=== PATIENT | female | born 1950 | race Caucasian/White ===

== ENCOUNTER 2017-06-15 22:52 | Observation (INO) | payer BC ==
[2017-06-15] MEDS ORDERED: NS 1,000 ML IV ONE (23:03)
--- NOTE | 2017-06-15 23:03 | EDPHY ---
H & P Stated Complaint: Abdominal epigastric pain, chest pain, back pain HPI/ROS: HPI CHIEF COMPLAINT: Chest pain radiating to back. HISTORY OF PRESENT ILLNESS: This patient is a 66-year-old female, she is from [place] here on vacation, she presents to the emergency room by private vehicle with discomfort in her epigastric and chest region that radiates directly to her back. This started approximately 3 hr ago were at 8:00 p.m.. She complains the pain is a fullness. Epigastric and upper chest left-sided to her back. Denies pleuritic pain or shortness of breath. Denies nausea. She denies having history of cardiovascular disease. She currently has 7/10 discomfort. Past Medical History: Obesity, diabetes with diet control, depression, thyroid Past Surgical History: Laparoscopic surgery for ovarian cyst, knee surgery. Social History: Denies daily use of drugs at back products. 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 Family History: Noncontributory ROS REVIEW OF SYSTEMS: A comprehensive 10 point review of systems is otherwise negative aside from elements mentioned in the history of present illness. Exam Constitutional appears well nontoxic triage nursing summary reviewed, vital signs reviewed, awake/alert. Eyes normal conjunctivae and sclera, EOMI, PERRLA. HENT normal inspection, atraumatic, moist mucus membranes, no epistaxis, neck supple/ no meningismus, no raccoon eyes. Respiratory clear to auscultation bilaterally, normal breath sounds, no respiratory distress, no wheezing. Cardiovascular rate normal, regular rhythm, no murmur, no edema, distal pulses normal. Gastrointestinal soft, non-tender, no rebound, no guarding, normal bowel sounds, no distension, no pulsatile mass. Genitourinary no CVA tenderness. Musculoskeletal no midline vertebral tenderness, full range of motion, no calf swelling, no tenderness of extremities, no meningismus, good pulses, neurovascularly intact. Skin pink, warm, & dry, no rash, skin atraumatic. Neurologic awake, alert and oriented x 3, AAOx3, moves all 4 extremities equally, motor intact, sensory intact, CN II-XII intact, normal cerebellar, normal vision, normal speech. Psychiatric normal mood/affect. Heme/Lymph/Immune no lymphadenopathy. Differential diagnosis includes but is not limited to: ACS, atypical chest pain , pneumothorax, pneumonia, pulmonary embolism, aortic dissection, congestive heart failure, tumor, musculoskeletal pain, esophageal pain, GERD, peptic ulcer disease, pancreatitis Medical Decision Making: Plan for this patient her symptoms very concerning for cardiac chest pain. Patient began full-dose aspirin. Nitroglycerin be given. She will need full laboratory monitor, EKG to rule out acute coronary syndrome, check troponin, check D-dimer, chest x-ray, and most likely proceed to his CT angiogram chest for rule out pulmonary embolism/aortic dissection. Re-evaluation: EKG interpretation by me on record in [employer] system. Impression time of EKG 2309, this is sinus rhythm rate of 57. There is abnormal T-wave inversions in V1 V2 V3. These are symmetrically inverted concerning for ischemia. No ST elevation. 2351: Patient has a positive D-dimer. Will proceed with CT angiogram of the chest rule out pulmonary embolism. 1228: Patient CT scan chest abdomen pelvis reviewed. No evidence of aortic dissection, no evidence of pulmonary embolism, no pneumonia, no pericardial effusion. CT scan of the chest abdomen pelvis does not show any acute process causing this patient's discomfort in her epigastric and chest area. Patient does have a positive D-dimer. No PE seen on CT scan. However she does complain of right leg swelling. Will proceed with an ultrasound right lower extremity rule out DVT. 1229: Additionally I did re-evaluate her she still has a little bit of chest discomfort 2/10 but much improved after 2 nitroglycerin and 1 mg Ativan. Patient has received full-dose aspirin. Planned for this patient repeat EKG. Troponin is noted to be negative. Patient be admitted to the hospitalist service for further cardiac evaluation. REPEAT EKG: EKG interpretation by me on record in [employer] system. Impression time of EKG 0032, sinus rhythm rate of 74. Q-waves noted V1 V2 V3 with T-wave inversions. Similar to previous EKG. No ST elevation. Patient has been admitted to the hospalist service. Dr. Sharma. Doppler of the right lower extremity for abnormal right lower extremity swelling is negative for DVT. Dr. Moody Source: Patient - Personal History Current Tetanus Diphtheria and Acellular Pertussis (TDAP): Yes - Medical/Surgical History Hx Asthma: No Hx Chronic Respiratory Disease: No Hx Diabetes: Yes Hx Cardiac Disease: No Hx Renal Disease: No Hx Cirrhosis: No Hx Alcoholism: No Hx HIV/AIDS: No Hx Splenectomy or Spleen Trauma: No Other PMH: thyroid, hormonal - Social History Smoking Status: Never smoked Constitutional: Initial Vital Signs Temperature (C) 36.5 C 06/15/17 23:00 Heart Rate 71 06/15/17 23:00 Respiratory Rate 20 06/15/17 23:00 Blood Pressure 156/91 H 06/15/17 23:00 O2 Sat (%) 97 06/15/17 23:00 O2 Delivery Mode Room Air Allergies/Adverse Reactions: codeine Allergy (Verified 06/15/17 22:57) hydrocodone Allergy (Verified 06/15/17 22:57) Penicillins Allergy (Verified 06/15/17 22:57) prochlorperazine [From Compazine] Allergy (Verified 06/15/17 22:57) Home Medications: Medication Instructions Recorded Aspirin 81 mg PO DAILY #30 tab.chew 06/16/17 Atorvastatin Calcium [Lipitor 20 20 mg PO DAILY #30 tab 06/16/17 mg (*)] Biest Cream - Compounded 1 stef TP DAILY 06/16/17 Cholecalciferol Vit D3 [Vitamin D3 3,000 units PO DAILY 06/16/17 (*)] FLUoxetine [Prozac 20 MG (*)] 20 mg PO DAILY 06/16/17 Herbals/Supplements -Info Only 1 ea PO DAILY 06/16/17 Metoprolol Succinate Xr [Toprol Xl 25 mg PO DAILY #30 tab.sr 06/16/17 25 mg (*)] Progesterone, Micronized 100 mg PO HS 06/16/17 [Progesterone] Thyroid,Pork [Thyroid] 60 mg PO DAILY 06/16/17 Medical Decision Making - Data Points Laboratory Results: Laboratory Results 06/15/17 23:20 06/15/17 23:20 Medications Given: Discontinued Medications Acetaminophen (Tylenol) 650 mg PO Q4HRS PRN PRN Reason: Pain, Mild/Fever, Can Take PO Stop: 12/13/17 01:42 Last Admin: 06/16/17 11:38 Dose: 650 mg Aspirin (Aspirin) 325 mg PO EDNOW ONE Stop: 06/15/17 23:15 Last Admin: 06/15/17 23:30 Dose: 325 mg Sodium Chloride (Ns) 1,000 mls @ 0 mls/hr IV EDNOW ONE; Wide Open PRN Reason: Protocol Stop: 06/15/17 23:04 Last Admin: 06/15/17 23:29 Dose: 1,000 mls Lorazepam (Ativan Injection) 1 mg IVP EDNOW ONE Stop: 06/16/17 00:21 Last Admin: 06/16/17 00:21 Dose: 1 mg Morphine Sulfate (Morphine) 2 mg IVP EDNOW ONE Stop: 06/16/17 00:29 Last Admin: 06/16/17 01:34 Dose: Not Given Nitroglycerin (Nitrostat) 0.4 mg SL EDNOW ONE Stop: 06/15/17 23:15 Last Admin: 06/15/17 23:28 Dose: 0.4 mg Ondansetron HCl (Zofran) 4 mg IVP EDNOW ONE Stop: 06/15/17 23:24 Last Admin: 06/15/17 23:28 Dose: 4 mg Ondansetron HCl (Zofran) 4 mg IVP EDNOW ONE Stop: 06/16/17 00:29 Last Admin: 06/16/17 01:34 Dose: Not Given Departure - Departure Disposition: [facility] Inpatient Acute Clinical Impression: Chest pain Qualifiers: Chest pain type: unspecified Qualified Code(s): R07.9 - Chest pain, unspecified Condition: Fair
--- NOTE | 2017-06-15 23:11 | CPEKG ---
Heart Rate: 57 RR Interval: 1053 P-R Interval: 148 QRSD Interval: 92 QT Interval: 428 QTC Interval: 417 P [place]: 36 QRS [place]: 44 T Wave [place]: 45 EKG Severity - ABNORMAL ECG - EKG Impression: SINUS RHYTHM EKG Impression: ABNRM R PROG, CONSIDER ASMI OR LEAD PLACEMENT EKG Impression: BORDERLINE T ABNORMALITIES, ANTERIOR LEADS Electronically Signed By: Vishnu Leo 16-Jun-2017 06:38:04
[2017-06-15] MEDS ORDERED: NITROGLYCERIN 0.4 MG BTL SL ONE (23:14)
[2017-06-15] MEDS ORDERED: ASPIRIN 325 MG TAB PO ONE (23:14)
[2017-06-15] MEDS ORDERED: ONDANSETRON 4 MG/2 ML VIAL ONE (23:19)
[2017-06-15] MEDS ORDERED: ONDANSETRON 4 MG/2 ML VIAL IVP ONE (23:23)
[2017-06-15 23:29] LABS: PLATELET COUNT 255 10^3/uL (150-400)
[2017-06-15 23:37] LABS: INR 0.93 (0.83-1.16); PROTIME(PATIENT) 12.7 SEC (12.0-15.0)
[2017-06-15 23:38] LABS: CREATINE KINASE 54 IU/L (0-156)
[2017-06-15] MEDS ORDERED: IOPAMIDOL (ISOVUE 370) 100 ML BTL IV ONE (23:45)
[2017-06-16] MEDS ORDERED: LORazepam 2 MG/ML INJ ONE ×2 (00:12→00:20)
[2017-06-16] MEDS ORDERED: LORazepam 2 MG/ML INJ IVP ONE (00:20)
[2017-06-16] MEDS ORDERED: ONDANSETRON 4 MG/2 ML VIAL IVP ONE (00:28)
--- NOTE | 2017-06-16 00:35 | CPEKG ---
Heart Rate: 74 RR Interval: 811 P-R Interval: 172 QRSD Interval: 92 QT Interval: 428 QTC Interval: 475 P [place]: 79 QRS [place]: 39 T Wave [place]: 40 EKG Severity - ABNORMAL ECG - EKG Impression: SINUS RHYTHM EKG Impression: PROBABLE ANTEROSEPTAL INFARCT, AGE INDETERM Electronically Signed By: Vishnu Leo 16-Jun-2017 06:38:04
[2017-06-16] MEDS ORDERED: ONDANSETRON 4 MG/2 ML VIAL IVP PRN (01:43)
[2017-06-16] MEDS ORDERED: LORazepam 2 MG/ML INJ IVP PRN (01:43)
[2017-06-16] MEDS ORDERED: ACETAMINOPHEN 325 MG TAB PO PRN (01:43)
[2017-06-16] MEDS ORDERED: NS 1,000 ML IV SCH (01:45)
[2017-06-16] MEDS ORDERED: NITROGLYCERIN 0.4 MG BTL SL PRN (01:47)
--- NOTE | 2017-06-16 04:36 | GHP ---
[f rep st] HISTORY AND PHYSICAL DATE OF ADMISSION: 06/16/2017 SOURCE: Patient able to provide some history, however, she did receive Ativan in the emergency department and is now quite somnolent and continues to fall asleep during the interview. [facility] was reviewed and case discussed with ED provider. CHIEF COMPLAINT: Chest pain. HISTORY OF PRESENT ILLNESS: This is a very pleasant 66-year-old female with past medical history significant for diabetes type 2, diet controlled, hypothyroidism, depression, ABBY on CPAP, morbid obesity, who presents to the emergency department today with complaints of chest pain that started approximately 7 p.m. Patient reports that she was at rest when the symptoms started. She reports that the pain feels like a pressure and pain. There is no burning, no sharp pain and is located in her mid chest substernally. The patient denied any associated shortness of breath. She did have some nausea with 1 episode of vomiting. No hematemesis. She reports that she became slightly sweaty during this episode. Patient also notes a component of epigastric discomfort with radiation to her back. The patient falls asleep and is not able to elaborate further. She denies any increase of lower extremity edema and reports her right leg is chronically slightly bigger than her left. REVIEW OF SYSTEMS: Limited, except as noted above secondary to patient's somnolence after medications. ALLERGIES: Codeine, hydrocodone, penicillin, and Compazine. MEDICATIONS: At home, as per EMR, levothyroxine, fluoxetine. PAST MEDICAL HISTORY: Significant for morbid obesity, BMI of greater than 40, diabetes type 2, hypothyroidism, depression, ABBY on CPAP. PAST SURGICAL HISTORY: Significant for a laparoscopy for ovarian cyst and knee surgery. FAMILY HISTORY: Negative for coronary artery disease or diabetes. SOCIAL HISTORY: Patient lives in [place]. She is visiting friends here locally. She denies any tobacco, drugs, or alcohol. 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 CODE STATUS: Full. PHYSICAL EXAMINATION: VITAL SIGNS: Upon arrival to the emergency department, blood pressure 156/91, heart rate 71, O2 saturation 97% on room air with a temperature 36.5. Vitals currently available: Blood pressure 144/72, heart rate is 63, respiratory rate 18, O2 saturation 92% on room air with a temperature 36.6. GENERAL: No acute distress, pleasant, morbidly obese female , who is lying quietly in the bed. Her friend is at bedside asleep. HEAD: Normocephalic, atraumatic. EYES: Extraocular muscles are grossly intact. Pupils equal, round, decreased reactivity to light bilaterally, but symmetric. No scleral icterus or conjunctival injection. ENT: Mucous membranes appear moist. No nasal discharge. Dentition intact. NECK: Supple. Trachea midline. CV: Regular rate and rhythm. No murmurs, rubs, or gallops. Heart sounds slightly distant. Limited secondary to body habitus. RESPIRATORY: Lungs are clear to auscultation bilaterally. No wheezes, rales, or rhonchi. Unlabored breathing. ABDOMEN: Obese, soft. Minimal tenderness to palpation in the epigastric region. No rebound or guarding. Positive bowel sounds. CHEST: Patient with tenderness to palpation over the sternum. She reports that this is similar to her current chest pain. : No Bishop in place. No suprapubic tenderness to palpation. EXTREMITIES: Patient without any cyanosis , clubbing, or edema appreciated. 1+ pedal pulses. PSYCH: Affect is slightly flat. Patient is somnolent due to sedation. NEURO: Grossly nonfocal. Patient without any facial drooping. Moves all extremities. LABORATORY DATA: WBC 9.56, H and H 14.4/41.7, MCV is 86.7, platelet count is 255. No bands. PT is 12.7, INR 0.93, PTT is 24.1, D-dimer 0.89. Sodium is 137 , potassium 4.6, chloride 105, CO2 21, anion gap 11, BUN 16, creatinine 0.7, GFR greater than 60, glucose 182, calcium 9.8, magnesium 2.0, total bilirubin 0.4, ALT is 45, AST is 26, alkaline phosphatase is 97. CK is 54, CK-MB 0.63. Troponin is negative. lipase is 43. Total protein 7.2, albumin 4.3, lipase is 89. EKG reviewed myself shows normal sinus rhythm in the 50s, anteroseptal leads with T-wave inversions V1, V2 and V3, T-wave flattening, small Q-wave in lead III. No acute ST elevations. QTc is 417. Repeat EKG is similar with rate slightly faster in the 70s. CT abdomen and pelvis image report reviewed. No hepatosplenomegaly, ascites, acute pancreatitis, or urinary tract obstruction. No CT evidence of appendicitis, abscess, or bowel obstruction. Fat containing small right inguinal hernia without obstruction. CT of the chest negative for aortic aneurysm or dissection. Suboptimal contrast without definite evidence of PE. No pneumonia, pleural effusion, or pneumothorax. Venous study preliminary report noted to be negative for DVT's. ASSESSMENT AND PLAN: A pleasant 66-year-old female with history of diabetes, morbid obesity, who presents to emergency department with atypical chest pain and epigastric pain. 1. Chest pain. Patient with some subtle nonspecific EKG changes. No available comparison EKGs, as patient is from out of town. Initial troponins are negative. Patient did receive aspirin and nitroglycerin in the emergency department without significant improvement in her pain. She received 1 mg of Ativan in the emergency department, which did help ameliorate some of her pain. Will continue to trend cardiac enzymes. Patient's heart score is elevated with some subtle EKG changes. The patient's total heart score is 5, putting patient at increased risk for adverse events. She has been hospitalized for her complaint of chest pain. Lipase is negative for any evidence of pancreatitis. CTA is negative for dissection, pulmonary embolism. Patient currently reporting she is chest pain free and falls back asleep. Will plan to trend cardiac enzymes and anticipate patient will undergo stress testing if she rules out. 2. Back pain, improved. Patient without any current complaints of symptoms. Will continue to monitor. 3. Diabetes type 2. Patient reports that this is diet controlled. Will plan to check an A1c and a lipid panel. 4. Hypothyroidism. Check a TSH in the morning. Continue L-thyroxine dosing. 5. Morbid obesity. Body mass index greater than 40. Mobilization, lifestyle, and dietary changes will be encouraged. 6. Obstructive sleep apnea on continuous positive airway pressure. Patient without her home continuous positive airway pressure at bedside, and currently loaner continuous positive airway pressures are not available because they are in use. The patient has been placed on supplemental oxygen. Advised patient that we do not anticipate she will need to stay for additional day, but if that is the case, then recommend that she have somebody bring in her home continuous positive airway pressure. 7. Fluid, electrolyte, nutrition. The patient will receive some IV fluid for gentle hydration. Electrolytes will be monitored and replaced p.r.n. Diet will be n.p.o. pending outcome of rule out. She will likely require stress testing. 8. She is not a candidate for treadmill stress testing due to her limited activity abilities. 9. Code status. Will be full at this time. Unable to have a full discussion with the patient, as she is sedated and somnolent. 10. Prophylaxis. Sequential compression devices, holding anticoagulation pending cardiac evaluation. Anticipate short hospital stay at this point. Add Lovenox if patient should stay additional day. 11. Disposition. Patient has been admitted to observation on the PCU for close telemetry monitoring. /[id number]/MODL MTDD
[2017-06-16 05:45] LABS: PLATELET COUNT 238 10^3/uL (150-400)
[2017-06-16 05:54] LABS: CREATINE KINASE 46 IU/L (0-156)
--- NOTE | 2017-06-16 08:35 | CPEKG ---
Heart Rate: 64 RR Interval: 938 P-R Interval: 168 QRSD Interval: 82 QT Interval: 424 QTC Interval: 438 P [place]: 67 QRS [place]: 32 T Wave [place]: 34 EKG Severity - NORMAL ECG - EKG Impression: SINUS RHYTHM Electronically Signed By: Tai Mosley 16-Jun-2017 09:34:56
[2017-06-16] MEDS ORDERED: REGADENOSON 0.4 MG/5 ML SYR IVP ONE (10:18)
[2017-06-16 11:20] VITALS: BP 143/75; PULSE 62; RESP 15; TEMP 98.3; O2SAT 93
--- NOTE | 2017-06-16 13:30 | ASMTCASEMG ---
Living Arrangements What is your living Answers: Alone arrangement? Who do you live with? Type Of Residence What kind of residence do Answers: House you live in? Discharge Plan Comments Coordination Status Comments Notes: Pt is a 66 y/o female admitted for chest pain and abnormal EKG. Pt is having a stress test today. Pt is visiting from out of town. Pt will most likely d/c independent without any needs if nothing comes up on her stress test. CM available for d/c needs. Plan: Independent Date Signed: 06/16/2017 01:29 PM Electronically Signed By:CHARLES Bynum
--- NOTE | 2017-06-16 13:56 | PDCARST ---
CAR Stress Test Results Type of Stress Test: Lexiscan stress test Indication: cp Description of Procedure: After informed consent was obtained, pt was established to ECG, blood pressure, HR and oximetry monitoring. STRESS EKG AND HEMODYNAMIC DATA. Resting heart rate: 51 BPM. Resting ECG: SB. Resting blood pressure: 126/84 mmHg. O2 saturation at rest: 98%. Peak heart rate: 96 BPM. Peak blood pressure: 120/78 mmHg. Arrhythmias: none. Symptoms: The patient experienced no typical symptoms of angina during stress or recovery. Stress/Infusion ECG: No change in rhythm with no significant ST/T wave changes. Stress/infusion O2 saturation: 98% Impression: Uneventful Lexiscan infusion. Conclusion: Await nuclear images.
--- NOTE | 2017-06-16 16:47 | ASDISCHSUM ---
Discharge Information Plan Status:Home with No Needs Medically Cleared to Leave:06/15/2017 Discharge Date:06/16/2017 03:54 PM CM D/C Disposition: ADT D/C Disposition:Home, Routine, Self-Care Projected Discharge Date:06/16/2017 12:00 AM Transportation at D/C: Discharge Delay Reason: Follow-Up Date:06/16/2017 12:00 AM Discharge Slot: Final Diagnosis: Placement Information Patient Contact Information Contact Name:KATHIEROSAKATIE Relationship:Friend Address: Home Phone: City:[place] Alternate Phone: [email or web address] Code:[place] Email: Financial Information Financial Class:HMO and PPO Plans Primary Plan Desc: OUT OF [facility] Primary Plan Number:[id number] Secondary Plan Desc: Secondary Plan Number: Assessment Information [facility] Initial CM Assessment Living Arrangements What is your living Answers: Alone arrangement? Who do you live with? Type Of Residence What kind of residence do Answers: House you live in? Discharge Plan Comments Coordination Status Comments Notes: Pt is a 66 y/o female admitted for chest pain and abnormal EKG. Pt is having a stress test today. Pt is visiting from out of town. Pt will most likely d/c independent without any needs if nothing comes up on her stress test. CM available for d/c needs. Plan: Independent Date Signed: 06/16/2017 01:29 PM Electronically Signed By:CHARLES Bynum Intervention Information
--- NOTE | 2017-06-16 18:43 | GDS ---
[f rep st] DISCHARGE SUMMARY DISCHARGE DIAGNOSES: 1. Atypical chest pain. 2. Uncontrolled diabetes mellitus. 3. Obesity. 4. Evidence for previous myocardial infarction on nuclear stress test. 5. Hypothyroidism. 6. Obstructive sleep apnea. HOSPITAL COURSE AND STAY BY PROBLEM: Chest pain: The patient was admitted to the hospital with ches t pain that was associated with vomiting and diarrhea. Her pain has resolved. She has been monitore d on telemetry with no arrhythmias. Her troponins were negative. Nuclear stress test was done while in the hospital that showed a small infarct involving the distal septum near the apex but without sc intigraphic evidence for myocardial ischemia. This result was discussed with the patient, and I advi sed her to start metoprolol, an aspirin, and Lipitor. I urged her to seek followup with her primary care provider regarding improving her diabetes control. An A1c done during this hospital stay was ab ove goal at 7.7. Her LDL was 106. Recommend LDL of less than 70 given her diabetes and heart diseas e seen on stress test. PHYSICAL EXAM: VITAL SIGNS: On day of discharge, blood pressure 143/75, pulse of 62, respiratory ra te 15, O2 saturation 93% on room air. Temperature afebrile. GENERAL: No acute distress. HEART: S 1, S2. LUNGS: Clear. ABDOMEN: Soft. EXTREMITIES: No edema. PERTINENT LABS AND STUDIES DURING THIS HOSPITAL STAY: Myocardial perfusion scan done 06/16/2017, ref er to report. CT angio of the chest on 06/15/2017 was negative for aneurysm. There was no definite evidence for PE . CT of the abdomen showed no hepatosplenomegaly. No evidence for appendicitis or bowel obstruction. Lower extremity Doppler was negative for DVT. DISCHARGE MEDICATIONS: Please refer to discharge medication reconciliation in [facility] for details. Below is a preliminary list. New medications on hospital discharge: Metoprolol-XL 25 mg daily, Lipitor 20 mg daily, aspirin 81 mg daily. DISCHARGE INSTRUCTIONS: The patient is visiting from [place]. I urged her to seek follow up with her primary care provider upon returning home. She should be started on a medication for her diabete s if her A1c continues to be above 7. /[id number]/MODL
== END 2017-06-16 15:54 | disposition home or self-care (01) ==
LOC: F2W 06-16 01:44
PROVIDERS: ADMIT Family Medicine; ATTEND Family Medicine
PROC: 3E0337Z Introduction of Electrolytic and Water Balance Substance into Peripheral Vein, Percutaneous Approach (ICD-10-PCS; principal; 2017-06-16)
DX: R07.9 Chest pain, unspecified (principal); R94.31 Abnormal electrocardiogram [ECG] [EKG]; E86.9 Volume depletion, unspecified; E11.9 Type 2 diabetes mellitus without complications; E66.01 Morbid (severe) obesity due to excess calories; Z68.41 Body mass index [BMI] 40.0-44.9, adult; E03.9 Hypothyroidism, unspecified; G47.33 Obstructive sleep apnea (adult) (pediatric); F32.9 Major depressive disorder, single episode, unspecified; Z88.0 Allergy status to penicillin
CPT/HCPCS: 71010; 71275; 74177; 78452; 93005; 93017; 93971; 96361; 96374; 96375; 99285; A9500; G0378; J2060; J2405; J2785; Q9967

== ENCOUNTER 2017-09-21 18:38 | Emergency (ER) | payer BC ==
[2017-09-21] MEDS ORDERED: NS 1,000 ML IV ONE (19:25)
--- NOTE | 2017-09-21 19:30 | EDPHY ---
H & P Time Seen by Provider: 09/21/17 18:53 HPI/ROS: CHIEF COMPLAINT: Multiple complaints HISTORY OF PRESENT ILLNESS: The patient is a 67-year-old female who presents emergency department with multiple complaints. Patient states that she has been having ongoing shortness of breath since she arrived [place] in August. She has had intermittent cough that is nonproductive. No fevers or chills. She denies chest pain. Patient also complains of left lower abdominal pain. This is mild to moderate. It does not radiate. She has had no nausea or vomiting. Patient complains of edema on her right leg at her stem-cell injection site. She denies generalized leg pain or swelling. The patient also was concerned that her thyroid level is off. REVIEW OF SYSTEMS: My complete review of systems is negative except as mentioned in the HPI. Past Medical/Surgical History: Includes hypothyroidism, questionable heart attack, pneumonia, bronchitis Past surgical history: Stem-cell injection of right leg, cholecystectomy Social history: Patient does not smoke. She is visiting [place]. Smoking Status: Never smoked Physical Exam: 36.5, 157/103, 60, 19, 98% on room air GENERAL: Well-appearing, in no acute distress, alert. HEENT: Eyes normal to inspection, normal pharynx, no signs of dehydration. NECK: No thyromegaly, no lymphadenopathy, supple. RESPIRATORY: Clear to auscultation bilaterally, no rales, rhonchi or wheezing. CVS: Regular rate and rhythm, no rubs, murmurs, or gallops. ABDOMEN: Soft, left lower quadrant tenderness to palpation with no rebound or guarding, nondistended, no organomegaly. BACK: Normal to inspection, no CVA tenderness. SKIN: Normal color, no rash, warm, dry. No pallor. EXTREMITIES: No pedal edema, no calf tenderness, no Homans sign or cords, no joint swelling. Normal appearing NEURO/PSYCH: Alert and oriented x3, normal mood and affect, normal motor sensory exam. No obvious cranial nerve deficit. Constitutional: Initial Vital Signs Temperature (C) 36.5 C 09/21/17 18:44 Heart Rate 60 09/21/17 18:44 Respiratory Rate 19 09/21/17 18:44 Blood Pressure 157/103 H 09/21/17 18:44 O2 Sat (%) 98 09/21/17 18:44 O2 Delivery Mode Room Air Allergies/Adverse Reactions: codeine Allergy (Verified 06/15/17 22:57) hydrocodone Allergy (Verified 06/15/17 22:57) Penicillins Allergy (Verified 06/15/17 22:57) prochlorperazine [From Compazine] Allergy (Verified 06/15/17 22:57) Home Medications: Medication Instructions Recorded Aspirin 81 mg PO DAILY #30 tab.chew 06/16/17 Atorvastatin Calcium [Lipitor 20 20 mg PO DAILY #30 tab 06/16/17 mg (*)] Biest Cream - Compounded 1 stef TP DAILY 06/16/17 Cholecalciferol Vit D3 [Vitamin D3 3,000 units PO DAILY 06/16/17 (*)] FLUoxetine [Prozac 20 MG (*)] 20 mg PO DAILY 06/16/17 Herbals/Supplements -Info Only 1 ea PO DAILY 06/16/17 Metoprolol Succinate Xr [Toprol Xl 25 mg PO DAILY #30 tab.sr 06/16/17 25 mg (*)] Progesterone, Micronized 100 mg PO HS 06/16/17 [Progesterone] Thyroid,Pork [Thyroid] 60 mg PO DAILY 06/16/17 Medical Decision Making - Diagnostics Imaging Results: Imaging Impressions Chest X-Ray 09/21/17 19:25 Impression: 1. Bronchitis/airways disease. 2. No definite focal pneumonia. ED Course/Re-evaluation: In the emergency department I discussed possible etiologies with the patient. I answered all her questions. An IV was placed. Laboratory studies were obtained. Chest x-ray and abdominal CT were ordered. Patient was given normal saline 500 mL IV. EKG shows normal sinus rhythm, normal rate, normal axis, normal intervals. There are no ST or T-wave abnormalities. EKG is normal as interpreted by me. Sinus rhythm at 71. Normal axis. Normal intervals. There is mild ST elevation. This is unchanged from the previous EKG. I think this less likely represents acute pericarditis as opposed to the early repolarization Chest x-ray: No acute disease noted. Patient's CBC and chemistry unremarkable. BNP and troponin were negative. TSH was normal. CT of the abdomen pelvis: Please refer the dictated report by Dr. Westbrook. No acute disease noted. I discussed the results with the patient. I gave her warnings prior to leaving. She will return with worsening symptoms. Differential Diagnosis: My differential includes but is not limited to abdominal pain, small-bowel obstruction, perforation, diverticulitis, diverticular abscess, bronchitis, pneumonia, CHF, ACS, acute LA, hypothyroidism - Data Points Laboratory Results: Laboratory Results 09/21/17 20:00 09/21/17 20:00 09/21/17 09/21/17 20:00 20:00 WBC 6.30 10^3/uL 10^3/uL (3.80-9.50) RBC 4.57 10^6/uL 10^6/uL (4.18-5.33) Hgb 13.8 g/dL g/dL (12.6-16.3) Hct 40.5 % % (38.0-47.0) MCV 88.6 fL fL (81.5-99.8) MCH 30.2 pg pg (27.9-34.1) MCHC 34.1 g/dL g/dL (32.4-36.7) RDW 13.8 % % (11.5-15.2) Plt Count 203 10^3/uL 10^3/uL (150-400) MPV 9.5 fL fL (8.7-11.7) Neut % (Auto) 56.7 % % (39.3-74.2) Lymph % (Auto) 32.1 % % (15.0-45.0) [place] % (Auto) 8.4 % % (4.5-13.0) Eos % (Auto) 1.7 % % (0.6-7.6) Baso % (Auto) 0.6 % % (0.3-1.7) Nucleat RBC Rel Count 0.0 % % (0.0-0.2) Absolute Neuts (auto) 3.57 10^3/uL 10^3/uL (1.70-6.50) Absolute Lymphs (auto) 2.02 10^3/uL 10^3/uL (1.00-3.00) Absolute Monos (auto) 0.53 10^3/uL 10^3/uL (0.30-0.80) Absolute Eos (auto) 0.11 10^3/uL 10^3/uL (0.03-0.40) Absolute Basos (auto) 0.04 10^3/uL 10^3/uL (0.02-0.10) Absolute Nucleated RBC 0.00 10^3/uL 10^3/uL (0-0.01) Immature Gran % 0.5 % % (0.0-1.1) Immature Gran # 0.03 10^3/uL 10^3/uL (0.00-0.10) Sodium 138 mEq/L mEq/L (135-145) Potassium 4.3 mEq/L mEq/L (3.5-5.2) Chloride 106 mEq/L mEq/L (97-110) Carbon Dioxide 21 mEq/l L mEq/l (22-31) Anion Gap 11 mEq/L mEq/L (8-16) BUN 17 mg/dL mg/dL (7-23) Creatinine 0.7 mg/dL mg/dL (0.6-1.0) Estimated GFR > 60 Glucose 112 mg/dL H mg/dL (70-100) Calcium 9.0 mg/dL mg/dL (8.5-10.4) Total Bilirubin 0.6 mg/dL mg/dL (0.1-1.4) Conjugated Bilirubin 0.3 mg/dL mg/dL (0.0-0.5) Unconjugated Bilirubin 0.3 mg/dL mg/dL (0.0-1.1) AST 22 IU/L IU/L (14-46) ALT 44 IU/L IU/L (9-52) Alkaline Phosphatase 82 IU/L IU/L (38-126) Troponin I < 0.012 ng/mL ng/mL (0.000-0.034) NT-Pro-B Natriuret Pep 56 pg/mL pg/mL (0-125) Total Protein 6.5 g/dL g/dL (6.3-8.2) Albumin 3.7 g/dL g/dL (3.5-5.0) Lipase 75 IU/L IU/L (23-300) TSH 1.510 uIU/mL uIU/mL (0.465-4.680) Medications Given: Discontinued Medications Sodium Chloride (Ns) 1,000 mls @ 0 mls/hr IV EDNOW ONE; Wide Open PRN Reason: Protocol Stop: 09/21/17 19:26 Last Admin: 09/21/17 20:03 Dose: 1,000 mls Departure - Departure Disposition: Home, Routine, Self-Care Clinical Impression: Shortness of breath Abdominal pain Qualifiers: Abdominal location: left lower quadrant Qualified Code(s): R10.32 - Left lower quadrant pain Condition: Good Instructions: Acute Abdominal Pain (ED), Dyspnea (ED) Additional Instructions: Return with increasing shortness of breath, abdominal pain, fever, vomiting or any other concerns. Your laboratory studies were unremarkable. Your CT scan was unremarkable. Referrals: TANA WILKS MD [Other] - 1-2 days without fail
--- NOTE | 2017-09-21 19:51 | CPEKG ---
Heart Rate: 55 RR Interval: 1091 P-R Interval: 160 QRSD Interval: 88 QT Interval: 448 QTC Interval: 429 P [place]: 33 QRS [place]: 23 T Wave [place]: 35 EKG Severity - BORDERLINE ECG - EKG Impression: SINUS RHYTHM EKG Impression: BORDERLINE R WAVE PROGRESSION, ANTERIOR LEADS Electronically Signed By: Angela Ibrahim 21-Sep-2017 23:05:46
[2017-09-21 20:15] LABS: PLATELET COUNT 203 10^3/uL (150-400)
[2017-09-21] MEDS ORDERED: IOPAMIDOL (ISOVUE-300) 100 ML BTL ONE (20:31)
[2017-09-21 21:41] VITALS: BP 142/70
== END 2017-09-21 21:40 | disposition home or self-care (01) ==
DX: R06.02 Shortness of breath (principal); R10.32 Left lower quadrant pain; E86.9 Volume depletion, unspecified; Z79.82 Long term (current) use of aspirin; Z90.49 Acquired absence of other specified parts of digestive tract
CPT/HCPCS: Q9967

== ENCOUNTER 2018-06-14 07:00 | Observation (INO) | payer BC, OTHER ==
[2018-06-14] MEDS ORDERED: NS 1,000 ML IV ONE ×2 (07:21→09:47)
[2018-06-14] MEDS ORDERED: ONDANSETRON DISINTEGRATING 4 MG TAB PO ONE (07:21)
[2018-06-14] MEDS ORDERED: ONDANSETRON 4 MG/2 ML VIAL IVP ONE (07:21)
--- NOTE | 2018-06-14 07:43 | EDPHY ---
H & P Stated Complaint: n/v/d Time Seen by Provider: 06/14/18 07:21 HPI/ROS: CHIEF COMPLAINT: Vomiting HISTORY OF PRESENT ILLNESS: 67-year-old female with diabetes presents with vomiting. Onset of vomiting 3 hr ago. Unable to tolerate oral fluids or food. Feels dehydrated. Associated with 1 loose stool and generalized weakness. No known ill contacts. No abdominal pain, c/p, SOB, cough or fever. Completed a course of Zithromax for pharyngitis 6 days ago. REVIEW OF SYSTEMS: complete 10 point ROS reviewed and is negative except for the noted elements in the HPI - Personal History Current Tetanus/Diphtheria Vaccine: Unsure Current Tetanus Diphtheria and Acellular Pertussis (TDAP): Unsure - Medical/Surgical History Hx Asthma: No Hx Chronic Respiratory Disease: No Hx Diabetes: Yes Hx Cardiac Disease: Yes Hx Renal Disease: No Hx Cirrhosis: No Hx Alcoholism: No Hx HIV/AIDS: No Hx Splenectomy or Spleen Trauma: No Other PMH: thyroid, hormonal. stem cell surg r leg. choly 06/2017. ?heart attack i the past. PNEUMONIA 06/2017 - Social History Smoking Status: Never smoked - Physical Exam Exam: General Appearance: Alert, pleasant Eyes: Pupils equal and round, no conjunctival pallor ENT, Mouth: Mucous membranes moist Neck: Normal inspection Respiratory: Lungs are clear to auscultation Cardiovascular: Regular rate and rhythm Gastrointestinal: Abdomen is soft and nontender Neurological: A&O, nonfocal exam Skin: Warm and dry, no rash Extremities: Nontender, no pedal edema Psychiatric: Mood and affect normal Constitutional: Initial Vital Signs Temperature (C) 36.8 C 06/14/18 07:05 Heart Rate 91 06/14/18 07:05 Respiratory Rate 16 06/14/18 07:05 Blood Pressure 155/84 H 06/14/18 07:05 O2 Sat (%) 95 06/14/18 07:05 O2 Delivery Mode Room Air Allergies/Adverse Reactions: codeine Allergy (Verified 06/14/18 07:04) hydrocodone Allergy (Verified 06/14/18 07:04) Penicillins Allergy (Verified 06/14/18 07:04) prochlorperazine [From Compazine] Allergy (Verified 06/14/18 07:04) Home Medications: Medication Instructions Recorded Cholecalciferol Vit D3 [Vitamin D3 3,000 units PO DAILY 06/16/17 (*)] FLUoxetine [Prozac 20 MG (*)] 20 mg PO DAILY 06/16/17 Progesterone, Micronized 100 - 200 mg PO HS 06/16/17 [Progesterone] Herbals/Supplements -Info Only 1 ea PO DAILY 06/14/18 LORazepam [Ativan (*)] 1 mg PO DAILY PRN 06/14/18 Meclizine HCl [Meclizine HCl 25 mg 25 mg PO DAILY PRN 06/14/18 (RX,OTC)] Ondansetron Odt [Zofran Odt 4 mg 4 mg PO Q4 PRN #6 tab 06/14/18 (*)] metFORMIN HCL [Glucophage 500 mg 500 mg PO BIDMEAL 06/14/18 (*)] Medical Decision Making ED Course/Re-evaluation: This patient presents with a 4 hr history of nausea, vomiting and diarrhea. concern for Cdif colitis, given recent abx, will send GI pathogen panel if able to collect stool. Zofran 4mg ODT given in triage. An IV was established and Zofran 4 mg IV given. Patient remained nauseated after IV Zofran. Phenergan 6.25 mg IV given without relief. Ativan 0.5 mg IV given for anxiety. Remains severely nauseated, has not vomited and no bowel movement while in the ED. Feels too weak to go home. Phenergan 6.25 mg IV given. Abdominal exam remains soft and nontender. I do not suspect SBO or intraabd infection at this point. Difficult IV access, Istat labs unremarkable, unable to obtain CBC/Chem 7, despite multiple attempts in ED. Will admit for observation and further care. The hospitalist service was consulted for admission. Differential Diagnosis: Differential diagnosis includes though it is not limited to appendicitis, cholecystitis, diverticulitis, pyelonephritis, bowel perforation, small bowel obstruction. - Data Points Laboratory Results: 06/14/18 10:15 POC Glucose 128 mg/dL H mg/dL (70-100) Medications Given: Acetaminophen (Tylenol) 650 mg PO Q4HRS PRN PRN Reason: Pain, Mild/Fever, Can Take PO Stop: 12/11/18 12:23 Last Admin: 06/14/18 21:19 Dose: 650 mg Enoxaparin Sodium (Lovenox) 40 mg SC BID SEB Stop: 12/11/18 20:59 Last Admin: 06/14/18 21:19 Dose: 40 mg Sodium Chloride (Ns) 1,000 mls @ 75 mls/hr IV CONT SEB Stop: 12/11/18 12:29 Last Admin: 06/14/18 12:36 Dose: 1,000 mls Insulin Human Lispro (Humalog Lispro) 0 unit SC TIDMEAL SEB PRN Reason: Protocol Stop: 12/11/18 17:59 Last Admin: 06/14/18 18:02 Dose: Not Given Discontinued Medications Sodium Chloride (Ns) 1,000 mls @ 0 mls/hr IV EDNOW ONE; Wide Open PRN Reason: Protocol Stop: 06/14/18 07:22 Last Admin: 06/14/18 07:54 Dose: 1,000 mls Sodium Chloride (Ns) 1,000 mls @ 0 mls/hr IV ONCE ONE; Wide Open PRN Reason: Protocol Stop: 06/14/18 09:48 Last Admin: 06/14/18 11:03 Dose: 1,000 mls Lorazepam (Ativan Injection) 0.5 mg IVP EDNOW ONE Stop: 06/14/18 08:57 Last Admin: 06/14/18 09:01 Dose: 0.5 mg Ondansetron HCl (Zofran Odt) 4 mg PO EDNOW ONE Stop: 06/14/18 07:22 Last Admin: 06/14/18 07:23 Dose: 4 mg Ondansetron HCl (Zofran) 4 mg IVP EDNOW ONE Stop: 06/14/18 07:22 Last Admin: 06/14/18 08:02 Dose: 4 mg Potassium Chloride (Klor-Con) 10 meq PO ONCE ONE PRN Reason: Protocol Stop: 06/14/18 20:22 Last Admin: 06/14/18 21:18 Dose: 10 meq Promethazine HCl (Phenergan) 6.25 mg IVP ONCE ONE Stop: 06/14/18 09:45 Last Admin: 06/14/18 09:50 Dose: 6.25 mg Promethazine HCl (Phenergan) 6.25 mg IVP ONCE ONE Stop: 06/14/18 10:56 Last Admin: 06/14/18 11:03 Dose: 6.25 mg Point of Care Test Results: Chemistry 06/14/18 10:15 POC Glucose 128 mg/dL H mg/dL (70-100) Departure - Departure Disposition: [facility] Inpatient Acute Clinical Impression: Vomiting Qualifiers: Vomiting type: unspecified Vomiting Intractability: intractable Nausea presence : with nausea Qualified Code(s): R11.2 - Nausea with vomiting, unspecified Condition: Good
[2018-06-14] MEDS ORDERED: LORazepam 2 MG/ML INJ IVP ONE (08:56)
[2018-06-14] MEDS ORDERED: PROMETHAZINE HCL 25 MG/ML INJ IVP ONE ×2 (09:44→10:55)
[2018-06-14] MEDS ORDERED: PROTOCOL POTASSIUM 1 DOSE MISC PRN (12:24)
[2018-06-14] MEDS ORDERED: PROMETHAZINE HCL 25 MG/ML INJ IVP PRN (12:24)
[2018-06-14] MEDS ORDERED: ONDANSETRON 4 MG/2 ML VIAL IVP PRN (12:24)
[2018-06-14] MEDS ORDERED: PROTOCOL MAGNESIUM 1 DOSE IV PRN (12:24)
[2018-06-14] MEDS ORDERED: ONDANSETRON DISINTEGRATING 4 MG TAB PO PRN (12:24)
[2018-06-14] MEDS ORDERED: D50W 25 GM/50 ML SYR IVP PRN (12:24)
[2018-06-14] MEDS ORDERED: PROTOCOL K PHOSPHATE 1 DOSE IV PRN (12:24)
[2018-06-14] MEDS ORDERED: NS 1,000 ML IV SCH (12:30)
--- NOTE | 2018-06-14 12:40 | PDGENHP ---
History and Physical - Chief Complaint Nausea and Vomiting - History of Present Illness Mer Escobedo is a 67 year old female with pmh of NIDDM, HLD, and depression who presented to the ER with acute onset of nausea and vomiting. She says that she was fine unitl about 3am this morning and then started throwing up. She is here visiting from [place]. She completed a course of azithromycin for a URI about 6 days ago. She, has had some loose stools but this morning also had 3 episodes of diarrhea. She also threw up multiple times this morning. She said that she has been throwing up water and anything she eats. She does not have any abdominal pain aside from some soreness from wretching. she has no black or bloody stools. She denied any dysuria, hematuria, or urinary frequency or urgency. she denied any fevers, chills, CP, sob, or other symptoms. No sick contacts and nobody around her is ill. The last thing she ate was a day old [place] panini last night, somewhere between 9-10PM. History Information - Allergies/Home Medication List Allergies/Adverse Reactions: codeine Allergy (Verified 06/14/18 07:04) hydrocodone Allergy (Verified 06/14/18 07:04) Penicillins Allergy (Verified 06/14/18 07:04) prochlorperazine [From Compazine] Allergy (Verified 06/14/18 07:04) Home Medications: Cholecalciferol Vit D3 [Vitamin D3 (*)] 3,000 units PO DAILY 06/16/17 [Last Taken 06/13/18] FLUoxetine [Prozac 20 MG (*)] 20 mg PO DAILY 06/16/17 [Last Taken 06/13/18] Progesterone, Micronized [Progesterone] 100 - 200 mg PO HS 06/16/17 [Last Taken 06/13/18] Herbals/Supplements -Info Only 1 ea PO DAILY 06/14/18 [Last Taken Unknown] LORazepam [Ativan (*)] 1 mg PO DAILY PRN 06/14/18 [Last Taken Unknown] Meclizine HCl [Meclizine HCl 25 mg (RX,OTC)] 25 mg PO DAILY PRN 06/14/18 [Last Taken Unknown] metFORMIN HCL [Glucophage 500 mg (*)] 500 mg PO BIDMEAL 06/14/18 [Last Taken 18:00] I have personally reviewed and updated: family history, medical history, social history, surgical history - Past Medical History diabetes type 2, hyperlipidemia - Surgical History Reports: cholecystectomy - Family History Positive for: diabetes type II - Social History Smoking Status: Never smoked Alcohol Use: None Drug Use: None Review of Systems Review of Systems: ROS: 10pt was reviewed & negative except for what was stated in HPI & below Physical Exam Physical Exam: Temp Pulse Resp BP Pulse Ox 37.2 C 79 15 176/85 H 93 06/14/18 12:17 06/14/18 12:17 06/14/18 12:17 06/14/18 12:17 06/14/18 12:17 Constitutional: no apparent distress, appears nourished, not in pain Eyes: PERRL, anicteric sclera, EOMI Ears, Nose, Mouth, Throat: moist mucous membranes, hearing normal, ears appear normal, no oral mucosal ulcers Cardiovascular: regular rate and rhythym, no murmur, rub, or gallop, No edema Respiratory: no respiratory distress, no rales or rhonchi, clear to auscultation Gastrointestinal: normoactive bowel sounds, soft, non-tender abdomen, no palpable masses, other (she was non tender except around her umbilicus which was apparently quite tender but she says this is not new and she had a rupture umbilical cord as a child and has always had this tenderness. ) Genitourinary: no bladder fullness, no bladder tenderness Skin: warm, normal color, no rashes or abrasions, no fluctuance, no induration, No mottled Musculoskeletal: full muscle strength, no muscle tenderness, normal joint ROM, no joint effusions Neurologic: AAOx3, CN II-XII Intact Psychiatric: interacting appropriately, not anxious, not encephalopathic, thought process linear Lymph, Heme, Immunologic: no cervical LAD, no supraclavicular LAD Lab Data & Imaging Review POC Glucose 128 mg/dL (70-100) H 06/14/18 10:15 Assessment & Plan Assessment: Intractable Nausea and vomiting- Vitals remain stable, and examination is reassuring. We are struggling to obtain labs but history suggestive of viral gastroenteritis. No alarm symptoms. she appears comfortable currently -obtain baseline CMP/CBC -check GI panel -IV hydration -expectant management with antiemetics, fluids NIDDM- takes 1gram glucophage BID. Hold while ill and cover with SSI HLD- resume lipitor on dc Depression- on prozac. fine to continue PPX- SCDS, Lovenox Fluids- Normal saline at 75 Lytes- Pending Nutrition- NPO with sips until we get labs Cor- Full Dispo- Observation for intractable NV
[2018-06-14 13:52] LABS: PLATELET COUNT 225 10^3/uL (150-400)
[2018-06-14] MEDS ORDERED: hydrALAZINE 20 MG/ML VIAL IVP PRN (14:46)
--- NOTE | 2018-06-14 15:50 | ASMTCMCOM ---
CM Note CM Note Notes: Pt visiting from [place], admitted to hospital with n/v/diarrhea. Anticipate pt will dc home independent when medically stable, CM availble for any changes. DC Plan: Independent Date Signed: 06/14/2018 03:50 PM Electronically Signed By:Nyasia De La Fuente RN
[2018-06-14] MEDS: INSULIN LISPRO 100 UNIT/ML SC SCH (18:02)
[2018-06-14] MEDS ORDERED: POTASSIUM CL 10 MEQ TAB PO ONE (20:21)
[2018-06-14] MEDS: ENOXAPARIN 40 MG/0.4 ML SYR SC SCH (21:19)
[2018-06-14] MEDS: ACETAMINOPHEN 325 MG TAB PO PRN (21:19)
[2018-06-15 05:56] LABS: PLATELET COUNT 196 10^3/uL (150-400)
[2018-06-15] MEDS ORDERED: LORazepam 1 MG TAB PO PRN (07:59)
[2018-06-15] MEDS: FLUoxetine 20 MG CAP PO SCH (08:33)
[2018-06-15] MEDS: ENOXAPARIN 40 MG/0.4 ML SYR SC SCH ×2 (08:33→19:59)
--- NOTE | 2018-06-15 08:44 | HOSPPROG ---
Hospitalist Progress Note Assessment/Plan: Mer Escobedo is a 67 year old female with pmh of NIDDM, HLD, and depression who presented to the ER with acute onset of nausea and vomiting. First encounter, chart reviewed. *Norovirus, gastroenteritis -supportive care -having significant diarrhea *intractable n and v -due to the above -better today *NIDDM -holding Glucophage in the setting above -SSI *HLD -Lipitor *depression -Prozac *plan: if better this afternoon, will dc Subjective: Mer is feeling better today. Objective: Vital Signs Temp Pulse Resp BP Pulse Ox 36.6 C 73 16 131/81 H 92 06/15/18 08:00 06/15/18 08:00 06/15/18 08:00 06/15/18 08:00 06/15/18 08:00 Microbiology 06/14/18 16:49 Gastrointestinal Tract Panel (PCR) - Final Stool Norovirus Gi/Gii Laboratory Results 06/15/18 05:32 06/15/18 05:32 06/14/18 06/15/18 06/16/18 05:59 05:59 05:59 Intake Total 2000 Output Total 1000 Balance 1000 - Physical Exam Constitutional: appears nourished, not in pain, obese Eyes: PERRL Ears, Nose, Mouth, Throat: hearing normal Cardiovascular: regular rate and rhythym Respiratory: no respiratory distress Gastrointestinal: normoactive bowel sounds (hyperactive), soft, non-tender abdomen Skin: warm Musculoskeletal: full muscle strength Neurologic: AAOx3 Psychiatric: interacting appropriately ICD10 Worksheet Patient Problems: Problems Problem Status Onset Vomiting Acute Chest pain Acute
[2018-06-15] MEDS: INSULIN LISPRO 100 UNIT/ML SC SCH ×3 (10:28→18:32)
[2018-06-15] MEDS ORDERED: POTASSIUM CL 10 MEQ TAB PO ONE ×2 (10:52→20:05)
[2018-06-15] MEDS: ACETAMINOPHEN 325 MG TAB PO PRN (14:57)
[2018-06-16] MEDS: ACETAMINOPHEN 325 MG TAB PO PRN (05:52)
[2018-06-16 08:06] VITALS: BP 141/85
[2018-06-16] MEDS: INSULIN LISPRO 100 UNIT/ML SC SCH (08:22)
[2018-06-16] MEDS: ENOXAPARIN 40 MG/0.4 ML SYR SC SCH (08:24)
[2018-06-16] MEDS: FLUoxetine 20 MG CAP PO SCH (08:25)
--- NOTE | 2018-06-16 09:50 | HOSPPROG ---
Hospitalist Progress Note Assessment/Plan: Mer Escobedo is a 67 year old female with pmh of NIDDM, HLD, and depression who presented to the ER with acute onset of nausea and vomiting. *Norovirus, gastroenteritis -supportive care -having significant diarrhea *intractable n and v -due to the above -better today *NIDDM -holding Glucophage in the setting above -SSI *HLD -Lipitor *depression -Prozac *plan:dc home Subjective: Mer is feeling much better today. Objective: Vital Signs Temp Pulse Resp BP Pulse Ox 36.6 C 70 16 141/85 H 96 06/16/18 08:00 06/16/18 08:00 06/16/18 08:00 06/16/18 08:00 06/16/18 08:00 Laboratory Results 06/15/18 05:32 06/16/18 05:31 06/15/18 06/16/18 06/17/18 05:59 05:59 05:59 Intake Total 2000 100 Output Total 1000 Balance 1000 100 - Physical Exam Constitutional: appears nourished, not in pain, obese Eyes: PERRL Ears, Nose, Mouth, Throat: hearing normal Cardiovascular: regular rate and rhythym Respiratory: no respiratory distress Gastrointestinal: normoactive bowel sounds, soft, non-tender abdomen Skin: warm Musculoskeletal: full muscle strength Neurologic: AAOx3 Psychiatric: interacting appropriately ICD10 Worksheet Patient Problems: Problems Problem Status Onset Vomiting Acute Chest pain Acute
[2018-06-16] MEDS ORDERED: MAGNESIUM SULF 1 GM/DEXTROSE 100 ML IV ONE (09:57)
--- NOTE | 2018-06-16 12:38 | GDS ---
DISCHARGE DIAGNOSES: 1. Norovirus, viral gastroenteritis. 2. Intractable nausea and vomiting. 3. Non-insulin dependent diabetes. 4. Hyperlipidemia. 5. Depression. BRIEF HISTORY: The patient is a 67-year-old female with a past medical history of [id number] diabetes, hyperlipidemia, and depression. She presented to the ER with acute onset of nausea and vomiting. A stool PCR was sent which noted that she had norovirus. She was treated with supportive care. She is eating and drinking well today. HOSPITAL COURSE: 1. Norovirus, gastroenteritis, resolved. 2. Intractable nausea and vomiting, resolved. 3. Non-insulin dependent diabetes. Her Glucophage was held. She was treated with sliding scale insulin. She can resume this tomorrow. 4. Hyperlipidemia, on statin therapy. 5. Depression, stable. She is on Prozac. DISCHARGE CONDITION: Stable. Blood pressure is 141/85, O2 sats on room air 96% , respiratory rate is 16, pulse is 70, temperature 36.6 Celsius. MEDICATIONS AT DISCHARGE: Please see the EMR. DISCHARGE INSTRUCTIONS: 1. Good handwashing. 2. If she develops fever, chills, worsening abdominal pain, return to the ER. /[id number]/MODL MTDD
== END 2018-06-16 12:19 | disposition home or self-care (01) ==
LOC: F3E 12:06
PROVIDERS: ADMIT Internal Medicine; ATTEND Internal Medicine
DX: A08.11 Acute gastroenteropathy due to Norwalk agent (principal); E86.0 Dehydration; R11.2 Nausea with vomiting, unspecified; E11.9 Type 2 diabetes mellitus without complications; E66.9 Obesity, unspecified; Z68.41 Body mass index [BMI] 40.0-44.9, adult; E78.5 Hyperlipidemia, unspecified; F32.9 Major depressive disorder, single episode, unspecified; Z88.0 Allergy status to penicillin
CPT/HCPCS: 96361; 96372; 96374; 96375; 96376; 99285; G0378; J1650; J1815; J2060; J2405; J2550

== ENCOUNTER 2018-08-08 11:33 | Emergency (ER) | payer BC, OTHER ==
[2018-08-08] MEDS ORDERED: NS 1,000 ML IV ONE (13:30)
[2018-08-08 13:42] LABS: PLATELET COUNT 268 10^3/uL (150-400)
[2018-08-08] MEDS ORDERED: IOHEXOL 350mgI/ML (OMNIPAQUE) 150 ML BTL IV ONE (14:06)
--- NOTE | 2018-08-08 15:07 | EDPHY ---
General - History Smoking Status: Never smoked Time Seen by Provider: 08/08/18 12:28 Narrative: CLINICAL IMPRESSION: Dizziness , fatigue ASSESSMENT/PLAN: 67 year old female visiting our area from [place] presents to the emergency department with approximately 3 days of gradual onset dizziness, nausea, and fatigue. Patient has a long history of chronic dizziness associated with past episodes of labyrinthitis as well as benign positional vertigo but stated this. Of dizziness and vertigo felt different. She also arrives with a mild headache rated 3/10. She has a nonfocal neurological exam, NIH score of 0. Vital signs stable, EKG shows normal sinus rhythm, no acute ST or T-wave changes , reviewed by Dr. Mccauley. Troponin negative. CT head and CTA head and neck are read by Radiology as negative for any acute abnormality. Lab work reassuring with no evidence of anemia, leukocytosis, electrolyte imbalance, hyperglycemia, DKA renal insufficiency, or metabolic disturbance. Patient was reporting some dysuria but has no evidence of urinary tract infection. She received IV fluids, meclizine, Zofran, and took Ativan prior to arrival which is what she normally takes for dizziness. Patient admits that she felt better. On multiple reassessments she was able to ambulate with me and had a steady gait. I did discuss an offer admission for dizziness however patient has refused at this time. She prefers to go home. I gave her a small refill of Ativan. She is planning on returning to her home state of [place] in 4 days. Low threshold for return to emergency department sooner as outlined in person and discharge papers. Patient is comfortable this plan. DIFFERENTIAL DX: Dizziness including but not limited to peripheral and central causes of vertigo , orthostatic causes including dehydration, electrolyte imbalance, urinary tract infection, CVA, acute blood loss. ED PROCEDURES: See lab and/or imaging results below ED COURSE: CT scan read by Radiology at 3:00 p.m., negative for acute findings. Labs reviewed, no significant electrolyte imbalance, leukocytosis, anemia. 3:20 P.M.: Patient reassessed by myself. States that she still has a mild headache and would now like some ibuprofen. Negative CT scans reviewed with the patient. Labs essentially unremarkable. EKG with normal sinus rhythm, no acute ST or T-wave changes, reviewed with Dr. Mccauley. Patient has no complaints of chest pain or shortness of breath. She complains mostly of being tired. She is able to provide urine sample at this time. Will attempt p.o. Challenge and road test. 4:30 p.m.: Patient reassessed, ambulated in the room with me and felt steady on her feet. All lab results again discussed and normal. Option for admission reviewed and offered but patient has declined and wishes to be discharged home. She will call a cab. I will give her a small refill of her Ativan that her primary care feels in her home state. She is returning on Monday. CHIEF COMPLAINT: Fatigue, dizziness, mild headache, nausea HPI: 67-year-old female who with a past medical history of diabetes presents to the emergency department with multiple vague complaints. Patient is visiting from [place] arrived to our area 5 days ago. She states over the last 2 days she has felt very tired. She does wear CPAP machine at night but has not worn it every night. She reports a history of chronic dizziness as well as a history of prior labyrinthitis and benign positional vertigo. Over the last 2 days she has reported some spinning sensations when sitting still. She has a mild 3/10 headache today. No associated vision changes, tinnitus, difficulty walking, slurred speech or word finding difficulties. No prior history of CVA or TIA. No associated chest pain or shortness of breath. She normally takes meclizine, antiemetics and Ativan as needed for dizziness. Admits that she took an Ativan prior to arrival and is feeling better. She has had a neurologist in her home town evaluate her for dizziness and has had scans of her head in the past. She is diabetic but has not been checking her blood glucose. She reports she was nauseous this morning but did not vomit. No complaints of abdominal pain. She does report some burning with urination and thinks she may have a UTI. PAST MEDICAL HISTORY: Diabetes, obstructive sleep apnea, morbid obesity See nurse/triage notes for additional history if applicable Pertinent Past Surgical History: Cholecystectomy Family History: None reported Social History: Visiting from [place] REVIEW OF SYSTEMS: All other systems negative Constitutional: No fever, no chills, positive for appetite change. Eyes: No discharge, vision change ENT: No sore throat, congestion, ear pain. Cardiovascular: No chest pain, no palpitations. Respiratory: No cough, no shortness of breath. Gastrointestinal: No abdominal pain, no vomiting, positive for nausea, diarrhea. Genitourinary: No hematuria, positive for dysuria, flank pain, pelvic pain Musculoskeletal: No back pain, joint swelling, joint pain, myalgias. Skin: No rashes, color change. Neurological: Positive for headache, dizziness, denies weakness, positive for fatigue. PHYSICAL EXAM: General Appearance: Alert, oriented, appropriate, cooperative, obese, NAD, well hydrated, non-toxic appearing, mildly hypertensive, no hypoxia. HEENT: TMs are clear bilaterally no perforation or FB, no injection, no evidence of serous or mucopurulent otitis. Oropharynx clear is no erythema or exudates, no tonsillar hypertrophy or asymmetry. Dentition without abnormality. Eyes: PERRLA, no acute vision change, no nystagmus, swelling, discharge, pain or photosensitivity. Conjunctiva pink, no pallor or injection Neck: Supple, nontender, no lymphadenopathy, no midline pain, FROM, no meningismus. Respiratory: There are no retractions, lungs are clear to auscultation. Cardiac: Regular rate and rhythm, no murmurs or gallops. Gastrointestinal: Abdomen is soft, nontender, bowel sounds normal, no masses/ hernia, no rigidity, guarding or focal peritoneal findings. Neurological: Alert and oriented x 3, CN 2-12 grossly intact, normal gait no ataxia, DTR's intact, normal sensation and strength. NIH score 0 with no limb ataxia Skin: Warm, dry, no rashes, no nodules on palpation. Musculoskeletal: Extremities are symmetrical, full range of motion, no tenderness, deformity, swelling, or erythema. No LE swelling, calf pain or asymmetry Psychiatric: Patient is oriented X 3, there is no agitation. MEDICAL DECISION MAKING: Patient was seen independently. Secondary supervising physician at time of evaluation was Dr Mccauley. Diagnosis: Dizziness, fatigue . New, requires workup Summary: See Assessment and Plan for summary of ED visit Clinical lab tests: ordered / reviewed. Independent visualization of images, tracing, or specimens: Yes. Decision to obtain medical records or history from someone other than the patient: No Review / Summarize previous medical records: Reviewed past ED admission notes Discussed patient with another provider: Radiology Patient Progress: Improved, stable for discharge. (Caio Keenan) Medical Decision Making: I did not see this patient while she was in the emergency department. However her care was discussed with the PA while the patient was in the department. I agree with treatment plan and management (Arnol Mccauley) - Diagnostics Imaging Results: Imaging Impressions Head CT 08/08/18 13:52 Impression: 1. No acute intracranial process. 2. Age-appropriate generalized cerebral volume loss with sequela of chronic microvascular ischemic disease. 3. Unremarkable CT angiogram of the head and neck. Stenoses are calculated using [place] Symptomatic Carotid Endarterectomy Trial (NASCET) criteria. Findings and recommendations discussed with Shubham Bonner MD at 1458 hour, 2018. Head CTA 08/08/18 13:52 Impression: 1. No acute intracranial process. 2. Age-appropriate generalized cerebral volume loss with sequela of chronic microvascular ischemic disease. 3. Unremarkable CT angiogram of the head and neck. Stenoses are calculated using [place] Symptomatic Carotid Endarterectomy Trial (NASCET) criteria. Findings and recommendations discussed with Shubham Bonner MD at 1458 hour, 2018. Neck CTA 08/08/18 13:52 Impression: 1. No acute intracranial process. 2. Age-appropriate generalized cerebral volume loss with sequela of chronic microvascular ischemic disease. 3. Unremarkable CT angiogram of the head and neck. Stenoses are calculated using [place] Symptomatic Carotid Endarterectomy Trial (NASCET) criteria. Findings and recommendations discussed with Shubham Bonner MD at 1458 hour, 2018. - Objective Vital Signs: Initial Vital Signs Temperature (C) 36.5 C 08/08/18 11:46 Heart Rate 77 08/08/18 11:46 Respiratory Rate 18 08/08/18 11:46 Blood Pressure 146/87 H 08/08/18 11:46 O2 Sat (%) 92 08/08/18 11:46 O2 Delivery Mode Room Air Allergies/Adverse Reactions: codeine Allergy (Verified 08/08/18 11:45) hydrocodone Allergy (Verified 08/08/18 11:45) Penicillins Allergy (Verified 08/08/18 11:45) prochlorperazine [From Compazine] Allergy (Verified 08/08/18 11:45) Home Medications: Medication Instructions Recorded Cholecalciferol Vit D3 [Vitamin D3 3,000 units PO DAILY 06/16/17 (*)] FLUoxetine [Prozac 20 MG (*)] 20 mg PO DAILY 06/16/17 Progesterone, Micronized 100 - 200 mg PO HS 06/16/17 [Progesterone] Herbals/Supplements -Info Only 1 ea PO DAILY 06/14/18 LORazepam [Ativan (*)] 1 mg PO DAILY PRN 06/14/18 Meclizine HCl [Meclizine HCl 25 mg 25 mg PO DAILY PRN 06/14/18 (RX,OTC)] metFORMIN HCL [Glucophage 500 mg 500 mg PO BIDMEAL 06/14/18 (*)] LORazepam [Ativan] 0.5 mg PO BID PRN #8 tablet 08/08/18 Laboratory Results: Laboratory Results 08/08/18 12:10 08/08/18 12:10 08/08/18 08/08/18 08/08/18 15:58 15:30 12:10 WBC RBC Hgb Hct MCV MCH MCHC RDW Plt Count MPV Neut % (Auto) Lymph % (Auto) [place] % (Auto) Eos % (Auto) Baso % (Auto) Nucleat RBC Rel Count Absolute Neuts (auto) Absolute Lymphs (auto) Absolute Monos (auto) Absolute Eos (auto) Absolute Basos (auto) Absolute Nucleated RBC Immature Gran % Immature Gran # Sodium 138 mEq/L mEq/L (135-145) Potassium 4.8 mEq/L mEq/L (3.5-5.2) Chloride 109 mEq/L mEq/L (97-110) Carbon Dioxide 21 mEq/l L mEq/l (22-31) Anion Gap 8 mEq/L mEq/L (6-14) BUN 17 mg/dL mg/dL (7-23) Creatinine 0.8 mg/dL mg/dL (0.6-1.0) Estimated GFR > 60 Glucose 111 mg/dL H mg/dL (70-100) Calcium 9.3 mg/dL mg/dL (8.5-10.4) POC Troponin I 0.01 ng/mL ng/mL (0.00-0.08) Urine Color YELLOW Urine Appearance CLEAR Urine pH 5.0 (5.0-7.5) Ur Specific [place] > 1.060 H (1.002-1.030) Urine Protein NEGATIVE (NEGATIVE) Urine Ketones NEGATIVE (NEGATIVE) Urine Blood NEGATIVE (NEGATIVE) Urine Nitrate NEGATIVE (NEGATIVE) Urine Bilirubin NEGATIVE (NEGATIVE) Urine Urobilinogen NEGATIVE EU EU (0.2-1.0) Ur Leukocyte Esterase NEGATIVE (NEGATIVE) Urine RBC 1-3 /hpf /hpf (0-3) Urine WBC 1-3 /hpf /hpf (0-3) Ur Epithelial Cells NONE SEEN /lpf /lpf (NONE-1+) Urine Mucus TRACE /lpf /lpf (NONE-1+) Urine Glucose NEGATIVE (NEGATIVE) 08/08/18 12:10 WBC 6.81 10^3/uL 10^3/uL (3.80-9.50) RBC 4.51 10^6/uL 10^6/uL (4.18-5.33) Hgb 13.2 g/dL g/dL (12.6-16.3) Hct 39.2 % % (38.0-47.0) MCV 86.9 fL fL (81.5-99.8) MCH 29.3 pg pg (27.9-34.1) MCHC 33.7 g/dL g/dL (32.4-36.7) RDW 13.4 % % (11.5-15.2) Plt Count 268 10^3/uL 10^3/uL (150-400) MPV 9.8 fL fL (8.7-11.7) Neut % (Auto) 63.4 % % (39.3-74.2) Lymph % (Auto) 26.4 % % (15.0-45.0) [place] % (Auto) 7.6 % % (4.5-13.0) Eos % (Auto) 1.6 % % (0.6-7.6) Baso % (Auto) 0.7 % % (0.3-1.7) Nucleat RBC Rel Count 0.0 % % (0.0-0.2) Absolute Neuts (auto) 4.31 10^3/uL 10^3/uL (1.70-6.50) Absolute Lymphs (auto) 1.80 10^3/uL 10^3/uL (1.00-3.00) Absolute Monos (auto) 0.52 10^3/uL 10^3/uL (0.30-0.80) Absolute Eos (auto) 0.11 10^3/uL 10^3/uL (0.03-0.40) Absolute Basos (auto) 0.05 10^3/uL 10^3/uL (0.02-0.10) Absolute Nucleated RBC 0.00 10^3/uL 10^3/uL (0-0.01) Immature Gran % 0.3 % % (0.0-1.1) Immature Gran # 0.02 10^3/uL 10^3/uL (0.00-0.10) Sodium Potassium Chloride Carbon Dioxide Anion Gap BUN Creatinine Estimated GFR Glucose Calcium POC Troponin I Urine Color Urine Appearance Urine pH Ur Specific [place] Urine Protein Urine Ketones Urine Blood Urine Nitrate Urine Bilirubin Urine Urobilinogen Ur Leukocyte Esterase Urine RBC Urine WBC Ur Epithelial Cells Urine Mucus Urine Glucose Medications Given: Discontinued Medications Sodium Chloride (Ns) 1,000 mls @ 0 mls/hr IV EDNOW ONE; Wide Open PRN Reason: Protocol Stop: 08/08/18 13:31 Last Admin: 08/08/18 13:47 Dose: 1,000 mls Ibuprofen (Motrin) 600 mg PO EDNOW ONE Stop: 08/08/18 15:19 Last Admin: 08/08/18 15:23 Dose: 600 mg Meclizine HCl (Meclizine Hcl) 25 mg PO EDNOW ONE Stop: 08/08/18 15:39 Last Admin: 08/08/18 15:40 Dose: 25 mg Ondansetron HCl (Zofran) 4 mg IVP EDNOW ONE Stop: 08/08/18 15:38 Last Admin: 08/08/18 15:40 Dose: 4 mg Point of Care Test Results: Chemistry 08/08/18 15:58 POC Troponin I 0.01 ng/mL ng/mL (0.00-0.08) Departure - Departure Disposition: Home, Routine, Self-Care Clinical Impression: Dizziness Fatigue Qualifiers: Fatigue type: other Qualified Code(s): R53.83 - Other fatigue Condition: Fair Instructions: Acute Nausea and Vomiting (ED), Dizziness (ED) Additional Instructions: DISCHARGE INSTRUCTIONS FROM YOUR DOCTOR Thank you for visiting our emergency department today. You were treated by a physician virtual customer assistant today and your case was reviewed with our ED Attending physician. Please keep in mind that discharge from the emergency department does not mean that there is nothing wrong - it simply means that we have not identified an emergency condition that requires further evaluation or treatment in the hospital. You should always plan to follow up with primary care for re- evaluation of your condition in the next 2-3 days. If you have been referred to a specialist, please call as soon as possible (today or tomorrow) to schedule your follow up appointment at the appropriate time. YOUR DIAGNOSTIC WORKUP IN THE EMERGENCY DEPARTMENT INCLUDED EKG, CARDIAC ENZYMES, CT HEAD, CTA HEAD AND NECK, LAB EVALUATION AND URINE STUDIES. WORKUP IS ESSENTIALLY UNREMARKABLE. WE SEE NO ABNORMAL FINDINGS ON CT SCAN. CARDIAC ENZYMES ARE NEGATIVE, EKG HAS NO ABNORMALITY. NO ELECTROLYTE IMBALANCE, ANEMIA OR SIGNS OF URINARY TRACT INFECTION. YOU RECEIVED MECLIZINE, ZOFRAN AND A NEW PRESCRIPTION FOR ATIVAN. ADMISSION WAS DISCUSSED AND OFFERED BUT YOU HAVE DECLINED. PLEASE MONITOR SYMPTOMS CLOSELY AT HOME. YOU CAN FOLLOW UP WITH YOUR VESTIBULAR GAS LEAK INSPECTOR IF YOU CHOOSE. PLEASE RETURN TO THE EMERGENCY DEPARTMENT IMMEDIATELY FOR WORSENING DIZZINESS, SEVERE HEADACHE, ALTERED MENTAL STATUS, SEIZURE ACTIVITY, VOMITING, INABILITY TO WALK, SLURRED SPEECH, DIFFICULTY FINDING WORDS, NUMBNESS TO HER ARMS OR LEGS, OR ANY OTHER CONCERNS. People present with illnesses and injuries in different ways, and it is always possible that we have missed something. You may always return for re-evaluation if symptoms worsen or if they are not improving or if you develop new/different symptoms. Again, thank you for choosing our emergency department. We hope that you feel better. Referrals: TANA CEE MD [Other] - As per Instructions Prescriptions: LORazepam [Ativan] 0.5 mg PO BID PRN #8 tablet PRN Reason: Dizziness
[2018-08-08] MEDS ORDERED: IBUPROFEN 600 MG TAB PO ONE (15:18)
[2018-08-08] MEDS ORDERED: ONDANSETRON 4 MG/2 ML VIAL ONE (15:35)
[2018-08-08] MEDS ORDERED: MECLIZINE HCL 25 MG TAB ONE (15:35)
[2018-08-08] MEDS ORDERED: ONDANSETRON 4 MG/2 ML VIAL IVP ONE (15:37)
[2018-08-08] MEDS ORDERED: MECLIZINE HCL 25 MG TAB PO ONE (15:38)
--- NOTE | 2018-08-08 16:10 | CPEKG ---
Test Reason : OPEN Blood Pressure : / mmHG Vent. Rate : 072 BPM Atrial Rate : 071 BPM P-R Int : 160 ms QRS Dur : 081 ms QT Int : 381 ms P-R-T Axes : 065 018 036 degrees QTc Int : 417 ms Sinus rhythm Low voltage, precordial leads Confirmed by Arnol Mccauley ([id number]) on 08/08/2018 4:09:59 PM Referred By: PHYSICIAN ED Confirmed By:Arnol Mccauley
[2018-08-08 16:51] VITALS: BP 133/75
== END 2018-08-08 17:01 | disposition home or self-care (01) ==
DX: R53.83 Other fatigue (principal); R42 Dizziness and giddiness; R51 Headache; R11.0 Nausea; E86.9 Volume depletion, unspecified
CPT/HCPCS: 84484-ER; 96374; J2405; Q9967

== ENCOUNTER 2018-08-09 13:45 | Inpatient (IN) | payer OTHER, BC ==
[2018-08-09] MEDS ORDERED: NS 1,000 ML IV ONE (14:15)
[2018-08-09] MEDS ORDERED: LORazepam 2 MG/ML INJ IVP ONE (14:15)
--- NOTE | 2018-08-09 14:31 | EDPHY ---
General Time Seen by Provider: 08/09/18 13:55 Narrative: CLINICAL IMPRESSION: Vertigo, probable labyrinthitis ASSESSMENT/PLAN: 67-year-old female seen by this provider yesterday for dizziness, presents to the emergency department again today by ambulance after she reports worsening dizziness and vertigo during an Roselyn maneuver at a local vestibular rehab clinic. Patient had extensive workup yesterday for dizziness including lab evaluation, EKG, cardiac enzymes, urine studies, CT head, and CTA head and neck. Patient was much improved yesterday after IV Ativan, Zofran, and oral meclizine, was able to ambulate around the emergency department without difficulty. Admission was discussed and offered yesterday but patient requested to be discharged and wanted to follow up with vestibular rehab. Today , patient is reporting persistent dizziness and spinning, light sensitivity, inability to turn her head, and inability to walk because of the dizziness. She reports no chest pain, shortness of breath, or severe headache. Patient agrees at this time that she needs admission and has required admission in the past for labyrinthitis and benign positional vertigo. She is visiting from [place] and had plan to return home Monday. IV established, Ativan ordered. Patient had received Zofran, meclizine and promethazine prior to arrival. I did not pursue additional repeat imaging or cardiac workup at this time. Case discussed with Dr. Robins as well as Dr. Disla for admission. Patient is comfortable with this plan. DIFFERENTIAL DX: Dizziness including but not limited to peripheral and central causes of vertigo , orthostatic causes including dehydration, electrolyte imbalance, intracranial abnormality, CVA, TIA, ACS and blood loss. ED PROCEDURES: See lab and/or imaging results below ED COURSE: CHIEF COMPLAINT: Worsening dizziness and vertigo HPI: 67-year-old female seen by this provider yesterday for dizziness and vertigo. Patient is visiting from [place] reports a history of chronic dizziness as well as numerous episodes of labyrinthitis, benign positional vertigo, and had been symptomatic for 2 days with gradual onset dizziness. She had a normal CT head and CTA head and neck yesterday as well as reassuring EKG, cardiac enzymes , and lab evaluation as well as normal urine studies. Patient reports she visited a vestibular rehab clinic today, had 1 Roselyn maneuver and was feeling better and then had a 2nd Roselyn maneuver and began feeling much worse. She now states she has persistent dizziness and spinning, light sensitivity, and cannot move or walk because it makes her dizziness worse. No reports of headache, nausea or vomiting. No chest pain or shortness of breath. Patient is denying hearing loss and tinnitus. She reports this feels like her prior episodes of labyrinthitis. PAST MEDICAL HISTORY: Chronic dizziness, hypothyroid, non insulin-dependent diabetes See nurse/triage notes for additional history if applicable Pertinent Past Surgical History: Stem cell knee surgery Family History: Noncontributory Social History: Visiting from [place] REVIEW OF SYSTEMS: All other systems negative Constitutional: No fever, no chills, appetite change. Eyes: No discharge, vision change ENT: No sore throat, congestion, ear pain, denies hearing loss and tinnitus Cardiovascular: No chest pain, no palpitations. Respiratory: No cough, no shortness of breath. Gastrointestinal: No abdominal pain, no vomiting, diarrhea. Genitourinary: No hematuria, dysuria, flank pain, pelvic pain Musculoskeletal: No back pain, joint swelling, joint pain, myalgias. Skin: No rashes, color change. Neurological: No headache, positive for vertigo and dizziness, weakness. PHYSICAL EXAM: General Appearance: Alert, oriented, appears very uncomfortable, covering her eyes with a towel, refusing to move her head, unable to walk due to dizziness, hypertensive, no hypoxia. HEENT: Oropharynx clear is no erythema or exudates, no tonsillar hypertrophy or asymmetry. Dentition without abnormality.] Eyes: PERRLA, no acute vision change, nystagmus, swelling. Conjunctiva pink, no pallor or injection Neck: Supple, nontender, no lymphadenopathy, no midline pain, FROM, no meningismus. Respiratory: There are no retractions, lungs are clear to auscultation. Cardiac: Regular rate and rhythm, no murmurs or gallops. Gastrointestinal: Abdomen is soft, nontender, bowel sounds normal, no masses/ hernia, no rigidity, guarding or focal peritoneal findings. Neurological: [ Alert and oriented x 3, CN 2-12 grossly intact, no limb ataxia or weakness Skin: Warm, dry, no rashes, no nodules on palpation. MEDICAL DECISION MAKING: Patient was seen independently. Secondary supervising physician at time of evaluation was Dr Robins. Diagnosis: Dizziness and vertigo. New, requires workup Summary: See Assessment and Plan for summary of ED visit Clinical lab tests: ordered / reviewed. Independent visualization of images, tracing, or specimens: Review yesterday's imaging results. Decision to obtain medical records or history from someone other than the patient: No Review / Summarize previous medical records: Reviewed yesterday's ED records Discussed patient with another provider: Dr. Robins, hospitalist, Dr. Disla Patient Progress: Stable for admission. - History Smoking Status: Never smoked - Objective Vital Signs: Initial Vital Signs Temperature (C) 36.6 C 08/09/18 13:54 Heart Rate 60 08/09/18 13:54 Respiratory Rate 18 08/09/18 13:54 Blood Pressure 162/85 H 08/09/18 13:54 O2 Sat (%) 96 08/09/18 13:54 O2 Delivery Mode Room Air Allergies/Adverse Reactions: codeine Allergy (Verified 08/09/18 14:36) Hallucinations hydrocodone Allergy (Verified 08/09/18 14:36) Hallucincations nickel Allergy (Verified 08/09/18 14:36) Penicillins Allergy (Verified 08/09/18 14:36) "Welt on arms" prochlorperazine [From Compazine] Allergy (Verified 08/09/18 14:36) Lock jaw Home Medications: Medication Instructions Recorded Cholecalciferol Vit D3 [Vitamin D3 3,000 units PO DAILY 06/16/17 (*)] FLUoxetine [Prozac 20 MG (*)] 20 mg PO DAILY 06/16/17 Progesterone, Micronized 100 - 200 mg PO HS 06/16/17 [Progesterone] Herbals/Supplements -Info Only 1 ea PO DAILY 06/14/18 Meclizine HCl [Meclizine HCl 25 mg 25 mg PO DAILY PRN 06/14/18 (RX,OTC)] metFORMIN HCL [Glucophage 500 mg 500 mg PO BIDMEAL 06/14/18 (*)] LORazepam [Ativan] 0.5 mg PO BID PRN #8 tablet 08/08/18 Ibuprofen [Motrin (*)] 200 mg PO DAILY PRN 08/09/18 Ondansetron HCl [Zofran] 4 mg PO TID PRN 08/09/18 Scopolamine [Transderm-Scop] 1 each TD DAILY PRN 08/09/18 Medications Given: Discontinued Medications Sodium Chloride (Ns) 1,000 mls @ 0 mls/hr IV EDNOW ONE; Wide Open PRN Reason: Protocol Stop: 08/09/18 14:16 Last Admin: 08/09/18 14:35 Dose: 1,000 mls Lorazepam (Ativan Injection) 0.5 mg IVP EDNOW ONE Stop: 08/09/18 14:16 Last Admin: 08/09/18 14:35 Dose: 0.5 mg Departure - Departure Disposition: [facility] Clinical Impression: Dizziness Labyrinthitis, acute Qualifiers: Laterality: unspecified laterality Qualified Code(s): H83.09 - Labyrinthitis, unspecified ear Condition: Fair
[2018-08-09] MEDS ORDERED: ONDANSETRON 4 MG/2 ML VIAL IVP PRN (14:40)
[2018-08-09] MEDS ORDERED: LORazepam 0.5 MG TAB PO PRN (14:43)
[2018-08-09] MEDS ORDERED: SCOPOLAMINE HYDROBROMIDE 1 MG/3 DAYS PATCH TD PRN (14:43)
--- NOTE | 2018-08-09 15:42 | PDGENHP ---
History and Physical - Chief Complaint vertigo - History of Present Illness 67 yo female with h/o DM and previous problem with labyrinthitis 10 yrs ago presents to ED with vertigo. Her symptoms started 2 days ago when she lola from bed. She made some food, but while seated in the living room, severe vertigo struck and she could not get off the floor. She crawled to the bathroom , where she took some ativan and meclizine, which was helpful. Today, she went to a physical therapist for Roselyn's Maneuver, but during the maneuver, her symptoms became suddenly worse. She felt nauseous, but did not vomit. She denies facial or limb weakness or difficulty with speech. Her symptoms persist in the EDs. She is unable to open her eyes due to severity of vertigo. She denies blurred vision, but is unable to let me perform a full neuro exam with ocular motion. She was in the ED yesterday and had a negative head CT and negative CTA head and neck. Given the severity of her symptoms, she is admitted for further management. History Information - Allergies/Home Medication List Allergies/Adverse Reactions: codeine Allergy (Verified 08/09/18 14:36) Hallucinations hydrocodone Allergy (Verified 08/09/18 14:36) Hallucincations nickel Allergy (Verified 08/09/18 14:36) Penicillins Allergy (Verified 08/09/18 14:36) "Welt on arms" prochlorperazine [From Compazine] Allergy (Verified 08/09/18 14:36) Lock jaw Home Medications: Cholecalciferol Vit D3 [Vitamin D3 (*)] 3,000 units PO DAILY 06/16/17 [Last Taken 08/09/18] FLUoxetine [Prozac 20 MG (*)] 20 mg PO DAILY 06/16/17 [Last Taken 08/09/18] Progesterone, Micronized [Progesterone] 100 - 200 mg PO HS 06/16/17 [Last Taken 08/07/18] Herbals/Supplements -Info Only 1 ea PO DAILY 06/14/18 [Last Taken Unknown] Meclizine HCl [Meclizine HCl 25 mg (RX,OTC)] 25 mg PO DAILY PRN 06/14/18 [Last Taken 08/09/18] metFORMIN HCL [Glucophage 500 mg (*)] 500 mg PO BIDMEAL 06/14/18 [Last Taken 09:00] Ibuprofen [Motrin (*)] 200 mg PO DAILY PRN 08/09/18 [Last Taken Unknown] Ondansetron HCl [Zofran] 4 mg PO TID PRN 08/09/18 [Last Taken 08/09/18 12:00] Scopolamine [Transderm-Scop] 1 each TD DAILY PRN 08/09/18 [Last Taken Unknown] I have personally reviewed and updated: family history, medical history, social history, surgical history - Past Medical History diabetes type 2, hyperlipidemia - Surgical History Reports: cholecystectomy - Family History Positive for: diabetes type II - Social History Smoking Status: Never smoked Additional social history: Lives independently Review of Systems Review of Systems: ROS: 10pt was reviewed & negative except for what was stated in HPI & below Physical Exam Physical Exam: Temp Pulse Resp BP Pulse Ox 36.6 C 60 18 162/85 H 96 08/09/18 13:54 08/09/18 13:54 08/09/18 13:54 08/09/18 13:54 08/09/18 13:54 Constitutional: no apparent distress Eyes: other (pt won't open her eyes for ocular exam) Ears, Nose, Mouth, Throat: moist mucous membranes Cardiovascular: regular rate and rhythym Respiratory: no respiratory distress, clear to auscultation Gastrointestinal: normoactive bowel sounds, soft, non-tender abdomen Skin: warm Musculoskeletal: full muscle strength Neurologic: AAOx3 Psychiatric: interacting appropriately Assessment & Plan Assessment: Vertigo - suspect peripheral origin, had negative CT/CTA head and neck yesterday. She has responded to Ativan and Meclizine. -admit to obs for supportive care, prn meclizine, ativan -PT/OT in am to attempt ambulation -seems MRI would be low yield with negative imaging yesterday, but would consider if symptoms not improving in next 24 hrs DM - hold MTF with recent contrast -SSI Dispo - obs Full code
[2018-08-09] MEDS ORDERED: D50W 25 GM/50 ML SYR IVP PRN (15:45)
[2018-08-09 16:28] LABS: PLATELET COUNT 232 10^3/uL (150-400)
[2018-08-09] MEDS: LORazepam 0.5 MG TAB PO PRN (20:24)
[2018-08-09] MEDS: MECLIZINE HCL 25 MG TAB PO PRN (20:24)
[2018-08-09] MEDS: INSULIN LISPRO 100 UNIT/ML SC SCH (21:55)
[2018-08-10] MEDS: LORazepam 0.5 MG TAB PO PRN (04:07)
[2018-08-10] MEDS: INSULIN LISPRO 100 UNIT/ML SC SCH ×3 (08:05→19:11)
[2018-08-10] MEDS: MECLIZINE HCL 25 MG TAB PO PRN ×2 (08:14→20:17)
[2018-08-10] MEDS: FLUoxetine 20 MG CAP PO SCH (08:14)
[2018-08-10] MEDS ORDERED: ONDANSETRON DISINTEGRATING 4 MG TAB PO PRN (12:04)
[2018-08-10] MEDS: DIAZEPAM 5 MG TAB PO PRN ×2 (12:27→18:07)
[2018-08-10] MEDS: SCOPOLAMINE HYDROBROMIDE 1 MG/3 DAYS PATCH TD PRN (12:27)
--- NOTE | 2018-08-10 13:34 | HOSPPROG ---
Hospitalist Progress Note Assessment/Plan: 67y female with c/o dizziness. First encounter, chart reviewed. D/W RN. #Vertigo - suspect peripheral origin - CT/CTA head and neck negative - She has responded to Ativan and Meclizine - supportive care, prn meclizine, ativan, valium, scopalomine patch - PT/OT - MRI symptoms not improving, pt requested further evaluation #DM - restart MTF -renal fx normal -SSI, pt refusing #Dispo - change to inpt - unable to ambulate - cont supportive care Full code Subjective: Still feeling dizzy. Unable to get out of bed. No pain. Objective: Vital Signs Temp Pulse Resp BP Pulse Ox 36.3 C 69 16 129/68 H 95 08/10/18 08:00 08/10/18 08:00 08/10/18 08:00 08/10/18 08:00 08/10/18 08:00 Laboratory Results 08/09/18 16:16 08/09/18 16:16 08/09/18 08/10/18 08/11/18 05:59 05:59 05:59 Intake Total 1000 Output Total 700 Balance 300 - Physical Exam Constitutional: appears nourished, not in pain, obese Eyes: PERRL, anicteric sclera, EOMI Ears, Nose, Mouth, Throat: moist mucous membranes, hearing normal, ears appear normal Cardiovascular: regular rate and rhythym, No JVD, No edema Respiratory: no respiratory distress, no rales or rhonchi, reduced air movement Gastrointestinal: normoactive bowel sounds, No tenderness, No ascites Skin: warm, normal color, No mottled Musculoskeletal: normal joint ROM, no joint effusions, generalized weakness Neurologic: AAOx3 Psychiatric: interacting appropriately, not anxious, not encephalopathic ICD10 Worksheet Patient Problems: Problems Problem Status Onset Chest pain Acute Vomiting Acute Labyrinthitis, acute Acute Dizziness Acute
--- NOTE | 2018-08-10 15:00 | PDMN ---
Medical Necessity Medical necessity: [facility] [place] M152- Dizziness A-1 - pt present with vertigo X 2 days - status changed to INPT 08/10/18- for : inability to ambulate after observation time period- - pt still with symptoms req further monitoring and tx. unable to get out of bed, dizzy, PT/OT, MRI, PMHx: labyrinthitis , DM2, hyperlipidemia, - > 2 [place] of ongoing med nec care needed.
--- NOTE | 2018-08-10 16:37 | ASMTCMCOM ---
CM Note CM Note Notes: 08/10/2018 Case Management Note Pt admitted for severe vertigo and labrythitis. Pt resides independently in [place]. Pt was independent in ADL's prior to admission. PT recommending SNF rehab today d/t increased dizziness with movements. Case Management will monitor progress through PT notes. Case Management d/c poc: to be determined. Case Management to follow. Date Signed: 08/10/2018 04:37 PM Electronically Signed By:Darling Zapata RN
[2018-08-10] MEDS: ONDANSETRON DISINTEGRATING 4 MG TAB PO PRN (18:06)
[2018-08-10] MEDS: IBUPROFEN 200 MG TAB PO PRN (19:32)
[2018-08-10] MEDS: metFORMIN HCL 500 MG TAB PO SCH (21:27)
[2018-08-11] MEDS: LORazepam 0.5 MG TAB PO PRN (02:20)
[2018-08-11] MEDS: ONDANSETRON DISINTEGRATING 4 MG TAB PO PRN (02:27)
[2018-08-11] MEDS: INSULIN LISPRO 100 UNIT/ML SC SCH ×3 (08:55→19:36)
[2018-08-11] MEDS: metFORMIN HCL 500 MG TAB PO SCH ×2 (08:57→19:24)
[2018-08-11] MEDS: FLUoxetine 20 MG CAP PO SCH (08:57)
[2018-08-11] MEDS: CHOLECALCIFEROL VIT D3 1,000 UNITS TAB PO SCH (08:57)
[2018-08-11] MEDS ORDERED: Herbals/Supplements -Info Only PO SCH (09:00)
[2018-08-11] MEDS: MECLIZINE HCL 25 MG TAB PO PRN ×2 (10:39→22:53)
[2018-08-11] MEDS: GABAPENTIN 300 MG CAP PO SCH ×2 (13:29→22:53)
--- NOTE | 2018-08-11 15:52 | HOSPPROG ---
Hospitalist Progress Note Assessment/Plan: 67y female with c/o dizziness. Able to ambulate a bit today, still not safe for discharge. #Vertigo - suspect peripheral origin, viral labyrinthitis most likely vs BPPV, did not tolerate Epleys as outpt. CT/CTA head and neck negative. MRI also neg for brainstem stroke, showed moderate microvascular ischemic changes. - cont prn Ativan, Meclizine, scopolamine patch - cont PT/OT #DM - MTF held on admission 07/21 recent contrast, restarted a bit early as pt was refusing SSI, will continue at this point #Dispo - cont inpt, PT/OT Full code Subjective: Pt feels better today, was able to ambulate a little, but still felt dizzy. No N/V. She has improved since admission, but doesn't feel safe on her feet. No fevers. No headaches. Taking po well. Objective: Vital Signs Temp Pulse Resp BP Pulse Ox 36.6 C 92 16 134/72 H 92 08/11/18 12:00 08/11/18 12:00 08/11/18 12:00 08/11/18 12:00 08/11/18 12:00 08/10/18 08/11/18 08/12/18 05:59 05:59 05:59 Output Total 200 Balance -200 - Physical Exam Constitutional: no apparent distress Eyes: PERRL Ears, Nose, Mouth, Throat: moist mucous membranes Cardiovascular: regular rate and rhythym Respiratory: no respiratory distress, clear to auscultation Gastrointestinal: normoactive bowel sounds, soft, non-tender abdomen Skin: warm Musculoskeletal: full muscle strength Neurologic: AAOx3 Psychiatric: interacting appropriately ICD10 Worksheet Patient Problems: Problems Problem Status Onset Dizziness Acute Labyrinthitis, acute Acute Chest pain Acute Vomiting Acute
[2018-08-12] MEDS: INSULIN LISPRO 100 UNIT/ML SC SCH ×3 (08:00→18:27)
[2018-08-12] MEDS: metFORMIN HCL 500 MG TAB PO SCH ×2 (08:39→20:25)
[2018-08-12] MEDS: FLUoxetine 20 MG CAP PO SCH (08:40)
[2018-08-12] MEDS: CHOLECALCIFEROL VIT D3 1,000 UNITS TAB PO SCH (08:42)
[2018-08-12] MEDS: GABAPENTIN 300 MG CAP PO SCH ×2 (08:42→21:43)
[2018-08-12] MEDS: MECLIZINE HCL 25 MG TAB PO PRN ×2 (08:46→21:43)
[2018-08-12] MEDS: ACETAMINOPHEN 325 MG TAB PO PRN ×3 (08:59→21:42)
[2018-08-12] MEDS: IBUPROFEN 200 MG TAB PO PRN (08:59)
[2018-08-12] MEDS: LORazepam 0.5 MG TAB PO PRN ×2 (10:24→18:24)
--- NOTE | 2018-08-12 12:29 | HOSPPROG ---
Hospitalist Progress Note Assessment/Plan: 67y female with vertigo. Able to ambulate a bit more today, still not safe for discharge. #Vertigo - suspect peripheral origin, viral labyrinthitis most likely vs BPPV, did not tolerate Epleys as outpt. CT/CTA head and neck negative. MRI also neg for brainstem stroke, showed moderate microvascular ischemic changes. - cont prn Ativan, Meclizine, scopolamine patch - cont PT/OT #DM - MTF held on admission 07/21 recent contrast, restarted a bit early as pt was refusing SSI, will continue at this point #Dispo - cont inpt, PT/OT. Pt still feels unsafe for discharge. We discussed probably d/c in am with close outpt f/u. Full code Subjective: Pt continues to complains of vertigo. She is able to ambulate a bit more, but gets dizzy and feels unsafe. No N/V. More interactive today. Objective: Vital Signs Temp Pulse Resp BP Pulse Ox 36.3 C 64 16 124/78 H 91 L 08/12/18 08:00 08/12/18 08:00 08/12/18 08:00 08/12/18 08:00 08/12/18 08:00 08/11/18 08/12/18 08/13/18 05:59 05:59 05:59 Intake Total 1200 Output Total 200 Balance -200 1200 - Physical Exam Constitutional: no apparent distress Eyes: PERRL, other (no nystagmus) Ears, Nose, Mouth, Throat: moist mucous membranes Cardiovascular: regular rate and rhythym Respiratory: no respiratory distress, clear to auscultation Gastrointestinal: normoactive bowel sounds, soft, non-tender abdomen Skin: warm Musculoskeletal: full muscle strength Neurologic: AAOx3 Psychiatric: interacting appropriately ICD10 Worksheet Patient Problems: Problems Problem Status Onset Dizziness Acute Labyrinthitis, acute Acute Chest pain Acute Vomiting Acute
[2018-08-12] MEDS ORDERED: BISACODYL 10 MG SUPP PR PRN (16:22)
[2018-08-12] MEDS ORDERED: MAGNESIUM HYDROXIDE 30 ML UDCUP PO PRN (16:22)
[2018-08-12] MEDS ORDERED: LACTULOSE 20 GM/30 ML UDCUP PO PRN (16:22)
[2018-08-12] MEDS: POLYETHYLENE GLYCOL 3350 17 GM PKT PO PRN (17:43)
[2018-08-12] MEDS: SENNOSIDES/DOCUSATE SODIUM TAB PO SCH (17:43)
[2018-08-13] MEDS: CHOLECALCIFEROL VIT D3 1,000 UNITS TAB PO SCH (08:46)
[2018-08-13] MEDS: FLUoxetine 20 MG CAP PO SCH (08:47)
[2018-08-13] MEDS: GABAPENTIN 300 MG CAP PO SCH ×2 (08:47→21:13)
[2018-08-13] MEDS: metFORMIN HCL 500 MG TAB PO SCH ×2 (08:48→19:09)
[2018-08-13] MEDS: MECLIZINE HCL 25 MG TAB PO PRN (08:48)
[2018-08-13] MEDS: SENNOSIDES/DOCUSATE SODIUM TAB PO SCH ×3 (08:49→22:01)
[2018-08-13] MEDS ORDERED: D50W 25 GM/50 ML SYR IVP PRN (10:36)
--- NOTE | 2018-08-13 10:41 | HOSPPROG ---
Hospitalist Progress Note Assessment/Plan: 67y female with vertigo. Able to ambulate, but still quite symptomatic, not safe for discharge. #Vertigo - suspect peripheral origin, viral labyrinthitis vs vestibular neuritis , did not tolerate Epleys as outpt and PT testing not c/w BPPV, discussed with PT yesterday. CT/CTA head and neck negative. MRI also neg for brainstem stroke , showed moderate microvascular ischemic changes. - cont prn Ativan, Meclizine, scopolamine patch - added gabapentin as pt noted benefit from this last time she had vertigo ( 10 yrs ago) - discussed with Dr. Vera, neurologist. Little data that steroids are beneficial, but given prolonged course, will try prednisone - will review MRI with radiology to ensure adequate visualization of inner ear - cont PT/OT #DM - MTF held on admission 2/ recent contrast, restarted a bit early as pt was refusing SSI - cont MTF - cont SSI, may have increased insulin needs with addition of prednisone #Dispo - cont inpt, PT/OT. Pt still feels unsafe for discharge. Full code Subjective: Pt still c/o vertigo with movement to either direction. Able to ambulate with therapy, but still quite symptomatic. Got a little nauseous with ocular motion on exam today. No vomiting. No fevers. No headaches, vision changes or weakness. Objective: Vital Signs Temp Pulse Resp BP Pulse Ox 36.1 C 65 17 135/80 H 92 08/13/18 08:00 08/13/18 08:00 08/13/18 08:00 08/13/18 08:00 08/13/18 08:00 08/12/18 08/13/18 08/14/18 05:59 05:59 05:59 Intake Total 1200 Balance 1200 - Physical Exam Constitutional: no apparent distress Eyes: PERRL, EOMI, other (no nystagmus, +nausea with ocular motion) Cardiovascular: regular rate and rhythym, no murmur, rub, or gallop Respiratory: no respiratory distress, clear to auscultation Gastrointestinal: normoactive bowel sounds, soft, non-tender abdomen Skin: warm Musculoskeletal: full muscle strength Neurologic: AAOx3 Psychiatric: interacting appropriately ICD10 Worksheet Patient Problems: Problems Problem Status Onset Dizziness Acute Labyrinthitis, acute Acute Chest pain Acute Vomiting Acute
[2018-08-13] MEDS: INSULIN LISPRO 100 UNIT/ML SC SCH ×2 (12:42→18:33)
[2018-08-13] MEDS: predniSONE 20 MG TAB PO SCH (12:50)
[2018-08-13] MEDS: ONDANSETRON DISINTEGRATING 4 MG TAB PO PRN ×2 (13:26→19:38)
[2018-08-13] MEDS: LORazepam 0.5 MG TAB PO PRN (14:54)
[2018-08-13] MEDS ORDERED: diphenhydrAMINE 25 MG CAP PO PRN (19:30)
[2018-08-13] MEDS: POLYETHYLENE GLYCOL 3350 17 GM PKT PO PRN (19:38)
--- NOTE | 2018-08-14 05:48 | GCON ---
[f rep st] CONSULTATION REFERRING PHYSICIAN: Sailaja Disla MD HISTORY: The patient is a 67-year-old woman who I am asked to see in neurologic consultation regardi ng episodes of vertigo and now intractable vertigo, which is somewhat position dependent. She tells me that 10 years ago she had a similar episode where she was hospitalized for a week and is not sure exactly what was done, but she probably had received some steroid she believe, and they told her it w as probably labyrinthitis. She believes she might have had another episode, but then over the years has had only occasional problems with intermittent position dependent dizziness and sometimes uses Zo lorna or some meclizine and lorazepam. With this particular occasion, she came to the hospital last w [facility] and had started to have some dizziness or vertigo, which was somewhat position dependent and whil e she was having Roselyn maneuver performed, things got even worse, so she was advised to go to the [facility] where she was evaluated and an MRI the next day, which showed nonspecific white matter changes. Unfortunately, she has really struggled with rather profound vertigo and says that if she leans all way to the left or the right, she will get violently ill. When she sits up, it is more common that she experiences that. Today, she was sitting on the toilet trying to have a bowel movement and becam e somewhat vagal and vomited after she had just received some prednisone. She denies focal numbness or weakness. No chest pain, palpitations, or shortness of breath. She has had a concussion in the p ast, but not really severe trauma. PAST MEDICAL HISTORY: The patient has a history of diabetes and hyperlipidemia. MEDICATIONS: At home, she was taking Prozac, progesterone, herbals, meclizine, metformin, ibuprofen, Zofran as needed, scopolamine daily. SOCIAL HISTORY: No smoking. Lives independently. FAMILY HISTORY: Type 2 diabetes. CURRENT TREATMENT: She is getting gabapentin 300 mg b.i.d., which she believes in the past might hav e been helpful. Ativan is as needed. Meclizine 25 twice daily. ALLERGIES: Codeine, hydrocodone, nickel, penicillin, prochlorperazine. PHYSICAL EXAM: VITAL SIGNS: Blood pressure is 145/77, pulse of 66, respiration 18, temperature 36.7 . GENERAL: She is overweight, in no acute distress. NECK: Supple. No bruits or masses. NEUROLOG IC: She is awake, alert, attentive. Clear, fluent speech with normal cognition. Pupils are 3 mm an d reactive. The extraocular movements are intact at rest. I do not see any nystagmus elicited. To avoid making her vomit or very sick, I did not force her to turn hard to the left or right, but she s aid that would induce vomiting very likely. As she did turn her head harder to the left or the right , she started to complain of feeling vertigo and then could stabilize, but I did not see any definite nystagmus. She does not have any change in facial strength or sensation. Motor: Normal muscle bul k and tone. 5/5 strength. No ataxia on [id number]. IMPRESSION: Total unit time of 50 minutes. This patient has intractable, somewhat position dependen t symptoms of a peripheral vestibulopathy of some kind. Perhaps neuritis and components of benign po sitional vertigo may be present, but it does not fit very precisely for that at this point. In any c ase, she had something similar 10 years ago that required a week of hospitalizations and eventual res olution. During this time frame, I am going to hold off on switching her to IV steroid. We might do that. I am going to add Benadryl with instructions to have her take 25 mg initially b.i.d. starting tonight. The patient can be monitored further and does not have anything life-threatening from any of the testing we have done but is nonfunctional at this point because of her severe mobility and pos ition dependent movements. Vestibular therapy is appropriate to try as tolerated. Until such time t hat she does not have violent vertigo, nausea and vomiting, it will be very hard for her to be able t o get out of the hospital and I do not know any other effective strategies other than what we are try ing so far, but again might try some IV steroids starting tomorrow depending on how she does. I will likely give her a dose in the morning. /[id number]/MODL
--- NOTE | 2018-08-14 08:25 | NEUROPROG ---
Assessment: 15 minute unit time. Suspected vestibular neuronitis. Restart steroids today. continue benadryl. Ok to dc when safe but visiting and staying with her blind significant other. Maybe case management can help. Subjective: The patient reports stable or mildly better but severe vertigo rolling to left or right. Objective: Vital Signs Temp Pulse Resp BP Pulse Ox 36.4 C 66 20 123/81 H 95 08/14/18 08:00 08/14/18 08:00 08/14/18 08:00 08/14/18 08:00 08/14/18 08:00 08/13/18 08/14/18 08/15/18 05:59 05:59 05:59 Intake Total 800 Balance 800 Normal exam unless rolls to her side and develops nystagmus with subject severe vertigo Allergies/Adverse Reactions: codeine Allergy (Verified 08/09/18 14:36) Hallucinations hydrocodone Allergy (Verified 08/09/18 14:36) Hallucincations nickel Allergy (Verified 08/09/18 14:36) Penicillins Allergy (Verified 08/09/18 14:36) "Welt on arms" prochlorperazine [From Compazine] Allergy (Verified 08/09/18 14:36) Lock jaw
[2018-08-14] MEDS: FLUoxetine 20 MG CAP PO SCH (08:35)
[2018-08-14] MEDS: SENNOSIDES/DOCUSATE SODIUM TAB PO SCH ×2 (08:35→21:25)
[2018-08-14] MEDS: GABAPENTIN 300 MG CAP PO SCH ×2 (08:35→21:26)
[2018-08-14] MEDS: CHOLECALCIFEROL VIT D3 1,000 UNITS TAB PO SCH (08:35)
[2018-08-14] MEDS: predniSONE 20 MG TAB PO SCH (08:36)
[2018-08-14] MEDS: metFORMIN HCL 500 MG TAB PO SCH ×2 (08:36→21:26)
[2018-08-14] MEDS: INSULIN LISPRO 100 UNIT/ML SC SCH ×3 (08:37→19:56)
--- NOTE | 2018-08-14 11:56 | HOSPPROG ---
Hospitalist Progress Note Assessment/Plan: 67y female with vertigo. Reviewed her care w Dr Vera. She is still unable to ambulate to return safely to home. Her significant other is blind and would have difficulty w helping her. #Vertigo -likely due to vestibular neuritis -did not tolerate Roselyn as outpatient and PT testing not c/w BPPV - CT/CTA head and neck negative. MRI also neg for brainstem stroke, showed moderate microvascular ischemic changes. -Dr Vera recommended steroids -Ativan, meclizine, scopolamine patch -reviewed her care w PT and she was able to ambulate 200 feet #DM - MTF held on admission 2/ recent contrast, restarted a bit early as pt was refusing SSI - cont MTF - cont SSI, may have increased insulin needs with addition of prednisone #Dispo - cont inpt, PT/OT. Pt still feels unsafe for discharge. Subjective: Mer said she has been unable to get oob without feeling dizzy. Objective: Vital Signs Temp Pulse Resp BP Pulse Ox 36.4 C 66 20 123/81 H 95 08/14/18 08:00 08/14/18 08:00 08/14/18 08:00 08/14/18 08:00 08/14/18 08:00 08/13/18 08/14/18 08/15/18 05:59 05:59 05:59 Intake Total 800 Balance 800 - Physical Exam Constitutional: appears nourished, obese Eyes: PERRL, other (no nystagmus noted while lying in bed and not moving much) Ears, Nose, Mouth, Throat: hearing normal Cardiovascular: regular rate and rhythym Respiratory: no respiratory distress Gastrointestinal: normoactive bowel sounds Skin: warm Neurologic: AAOx3 Psychiatric: interacting appropriately ICD10 Worksheet Patient Problems: Problems Problem Status Onset Dizziness Acute Labyrinthitis, acute Acute Chest pain Acute Vomiting Acute
--- NOTE | 2018-08-14 12:44 | ASMTCMCOM ---
CM Note CM Note Notes: Pts case discussed w/ Germaine Silvestre NP. Per report, pt is unable to walk at this time. CM spoke to Maricruz with PT and she will work w/ pt today. Needs are TBD at this time. CM to follow. Plan: TBD Date Signed: 08/14/2018 12:43 PM Electronically Signed By:CHARLES Bynum
[2018-08-14] MEDS: LORazepam 0.5 MG TAB PO PRN (21:35)
[2018-08-14] MEDS: MECLIZINE HCL 25 MG TAB PO PRN (23:14)
[2018-08-15] MEDS: GABAPENTIN 300 MG CAP PO SCH ×2 (08:19→20:50)
[2018-08-15] MEDS: FLUoxetine 20 MG CAP PO SCH (08:19)
[2018-08-15] MEDS: SENNOSIDES/DOCUSATE SODIUM TAB PO SCH ×2 (08:20→20:04)
[2018-08-15] MEDS: predniSONE 20 MG TAB PO SCH (08:20)
[2018-08-15] MEDS: metFORMIN HCL 500 MG TAB PO SCH ×2 (08:20→17:55)
--- NOTE | 2018-08-15 08:37 | NEUROPROG ---
Assessment: Total unit time of 15 min. This patient has no significant change in the last 48 hr but is not getting worse. There really is no other therapy I am aware of. Prolonged high-dose steroids would not be appropriate. She should have the following tapering of prednisone starting tomorrow with 40 mg for 2 days, followed by 20 mg for 2 days, followed by 10 mg for 2 days and then discontinue the steroid. The other medications can continue as tolerated to help minimize symptoms. I will not follow on a daily basis but I am available for any questions that arise. At this point is merely waiting for her to recover enough to be able to be discharged and safe but no additional diagnostic studies are indicated in my opinion. Subjective: The patient reports that she still has rather severe vertigo when she turns her head to the right more than the left but not when she is at rest. She can ambulate but has risk of becoming dizzy. She has had prednisone yesterday and will receive 60 mg today. It made it a little harder to sleep with no definite benefit so far. Objective: Vital Signs Temp Pulse Resp BP Pulse Ox 36.8 C 62 17 121/72 H 92 08/15/18 07:56 08/15/18 07:56 08/15/18 07:56 08/15/18 07:56 08/15/18 07:56 08/14/18 08/15/18 08/16/18 05:59 05:59 05:59 Intake Total 800 Balance 800 Alert and attentive lying in the bed in no acute distress with no nystagmus at rest and extraocular movements intact but turning to the right or left induces vertigo and nystagmus. Allergies/Adverse Reactions: codeine Allergy (Verified 08/09/18 14:36) Hallucinations hydrocodone Allergy (Verified 08/09/18 14:36) Hallucincations nickel Allergy (Verified 08/09/18 14:36) Penicillins Allergy (Verified 08/09/18 14:36) "Welt on arms" prochlorperazine [From Compazine] Allergy (Verified 08/09/18 14:36) Lock jaw
[2018-08-15] MEDS: MECLIZINE HCL 25 MG TAB PO PRN ×2 (08:38→20:04)
[2018-08-15] MEDS: SCOPOLAMINE HYDROBROMIDE 1 MG/3 DAYS PATCH TD PRN (08:38)
[2018-08-15] MEDS: CHOLECALCIFEROL VIT D3 1,000 UNITS TAB PO SCH (09:00)
[2018-08-15] MEDS: INSULIN LISPRO 100 UNIT/ML SC SCH ×4 (09:35→21:05)
--- NOTE | 2018-08-15 12:30 | HOSPPROG ---
Hospitalist Progress Note Assessment/Plan: 67y female with vertigo. She is still unable to ambulate to return safely to home. Her significant other is blind and would have difficulty w helping her. #Vertigo -likely due to vestibular neuritis -did not tolerate Roselyn as outpatient and PT testing not c/w BPPV -CT/CTA head and neck negative. MRI also neg for brainstem stroke, showed moderate microvascular ischemic changes. -today will be her second dose of Prednisone -Ativan, meclizine, scopolamine patch -reviewed her care w PT and recommendation is to get her a walker for home use #DM - MTF held on admission 07/21 recent contrast, restarted a bit early as pt was refusing SSI - cont MTF - cont SSI, may have increased insulin needs with addition of prednisone #Dispo - cont inpt, PT/OT. Pt still feels unsafe for discharge. Subjective: ada is still feeling like she will fall, had two episodes last night where she had difficulty w walking. Objective: Vital Signs Temp Pulse Resp BP Pulse Ox 36.6 C 76 16 113/72 91 L 08/15/18 12:00 08/15/18 12:00 08/15/18 12:00 08/15/18 12:00 08/15/18 12:00 08/14/18 08/15/18 08/16/18 05:59 05:59 05:59 Intake Total 800 Balance 800 - Physical Exam Constitutional: appears nourished, not in pain, obese Eyes: PERRL Ears, Nose, Mouth, Throat: hearing normal Respiratory: no respiratory distress Skin: warm Musculoskeletal: generalized weakness (was walking w PT when I evaluated her) Neurologic: AAOx3 Psychiatric: interacting appropriately ICD10 Worksheet Patient Problems: Problems Problem Status Onset Dizziness Acute Labyrinthitis, acute Acute Chest pain Acute Vomiting Acute
[2018-08-15] MEDS: LORazepam 0.5 MG TAB PO PRN (22:10)
[2018-08-16] MEDS: metFORMIN HCL 500 MG TAB PO SCH (08:07)
--- NOTE | 2018-08-16 09:14 | HOSPPROG ---
Hospitalist Progress Note Assessment/Plan: 67y female with vertigo. She is still unable to ambulate to return safely to home. Her significant other is blind and would have difficulty w helping her. #Vertigo -likely due to vestibular neuritis -did not tolerate Roselyn as outpatient and PT testing not c/w BPPV -CT/CTA head and neck negative. MRI also neg for brainstem stroke, showed moderate microvascular ischemic changes. -today will be her third dose of Prednisone -Ativan, meclizine, scopolamine patch -reviewed her care w PT and recommendation is to get her a walker for home use #DM - MTF held on admission 07/21 recent contrast, restarted a bit early as pt was refusing SSI - cont MTF - cont SSI, may have increased insulin needs with addition of prednisone -will change diet to ADA -have asked dietary to see #obesity w a BMI of 38 #Dispo - cont inpt, PT/OT. Pt still feels unsafe for discharge. Encouraged her to use walker and be independent as possible. Will have dietary see her. In addition a note was faxed to her work to notify of her hospital stay. Will re- evaluate later today and see if she feels improved enough to dc home. Subjective: Mer is c/o being dizzy anytime she looks right or left. Objective: Vital Signs Temp Pulse Resp BP Pulse Ox 36.0 C 60 16 144/86 H 92 08/16/18 08:00 08/16/18 08:00 08/16/18 08:00 08/16/18 08:00 08/16/18 08:00 - Physical Exam Constitutional: no apparent distress, appears nourished, obese Eyes: PERRL, other (slight nystagmus when she looks to the left and right) Ears, Nose, Mouth, Throat: hearing normal Respiratory: no respiratory distress Skin: warm Neurologic: AAOx3 Psychiatric: interacting appropriately ICD10 Worksheet Patient Problems: Problems Problem Status Onset Dizziness Acute Labyrinthitis, acute Acute Chest pain Acute Vomiting Acute
[2018-08-16] MEDS ORDERED: predniSONE 20 MG TAB PO SCH ×2 (09:21→10:00)
[2018-08-16] MEDS: GABAPENTIN 300 MG CAP PO SCH (09:24)
[2018-08-16] MEDS: FLUoxetine 20 MG CAP PO SCH (09:24)
[2018-08-16] MEDS: CHOLECALCIFEROL VIT D3 1,000 UNITS TAB PO SCH (09:25)
[2018-08-16] MEDS: SENNOSIDES/DOCUSATE SODIUM TAB PO SCH (09:25)
[2018-08-16] MEDS: predniSONE 20 MG TAB PO SCH (11:29)
[2018-08-16] MEDS: INSULIN LISPRO 100 UNIT/ML SC SCH (12:16)
--- NOTE | 2018-08-16 12:43 | ASMTCMCOM ---
CM Note CM Note Notes: Pts case discussed w/ Germaine Silvestre NP and Annette RN. CM met w/ pt for dispo planning. Pt reports that she plans to stay w/ her boyfriend that lives at [facility] once she is able to d/c. CM sent a letter to her place of employment via fax stating that she is in the hospital. CM made a copy for pts chart and another copy was given to pt. PT has cleared pt to d/c without any needs. PT suggested that pt ambulates w/ a walker when medically stable to d/c. No other needs at this time. CM available for changes. Plan: Independent Date Signed: 08/16/2018 12:42 PM Electronically Signed By:CHARLES Bynum
--- NOTE | 2018-08-16 15:22 | GDS ---
[f rep st] DISCHARGE SUMMARY DISCHARGE DIAGNOSIS: 1. Vertigo, likely due to vestibular neuritis. 2. Diabetes mellitus. 3. Obesity with a body mass index of 38. CONSULTATION: Nirmal Vera MD. BRIEF HISTORY: This patient is a 67-year-old woman who is here visiting her significant other in the [place] area. She was admitted with intractable vertigo, which is somewhat position dependent. She had a similar episode approximately 10 years ago where she was hospitalized for a week. She had an Roselyn maneuver performed which made things worse so she came to the hospital where she was evaluated and had an MRI performed. This showed nonspecific white matter changes. She has not had any vomiting today. She is concerned about returning to be with her significant other because he is blind and quite a bit older than her. She was able to ambulate in the hallways and was able to take a shower independently. Physical Therapy has recommended that she use a walker. She will be discharged home. In addition, I have given her a name of a specialist to follow up with at [facility]. HOSPITAL COURSE BY PROBLEM: 1. Vertigo, suspect secondary to vestibular neuritis. She had a CT head and neck which was negative. MRI was negative for brainstem stroke, which showed moderate microvascular ischemic changes. She has had multiple doses of prednisone. I will continue her on a weaning dose. 2. Diabetes mellitus. Her metformin was held on admission secondary to recent contrast. She has been on a sliding scale insulin because of being on the prednisone. Dietary is seeing her prior to discharge to help her manage her diabetes. 3. Obesity. She has a BMI of 38. DISCHARGE CONDITION: Stable. Blood pressure is 136/84, heart rate is 62, respiratory rate is 16, O2 sats on room air 93%, temperature is 36.1 Celsius. MEDICATIONS AT DISCHARGE: Please see the EMR. DISCHARGE INSTRUCTIONS: 1. To be on an ADA diet. I have asked Dietary to see her. 2. To see Dr. Urvashi Michele. She has a vestibular expert at [facility]. 3. Do [address] drive until her symptoms completely resolve. 4. Do not drive until her dizziness has completely resolved. Greater than 30 minutes discharging and seeing the patient multiple times today. /[id number]/MODL MTDD
[2018-08-16] MEDS: MECLIZINE HCL 25 MG TAB PO PRN (15:50)
[2018-08-16] MEDS: ONDANSETRON DISINTEGRATING 4 MG TAB PO PRN (15:52)
[2018-08-16 17:42] VITALS: BP 129/78
== END 2018-08-16 17:00 | disposition home or self-care (01) | DRG 149 ==
LOC: EDUNIT# → FOB 17:53 → OBSVTOIN 08-10 13:37
PROVIDERS: ADMIT Hospitalist; ATTEND Hospitalist
DX: H83.09 Labyrinthitis, unspecified ear (principal); E03.9 Hypothyroidism, unspecified; E11.9 Type 2 diabetes mellitus without complications; E66.01 Morbid (severe) obesity due to excess calories; Z68.38 Body mass index [BMI] 38.0-38.9, adult; Z79.52 Long term (current) use of systemic steroids; Z79.4 Long term (current) use of insulin
CPT/HCPCS: 96374; 97110-GO; 97112-GP; 97116-GP; 97162-GP; 97166-GO; 97530-GP; 97535-GO; G0378; J1815; J2060; J2405; J7512